=== PATIENT | male | born 1940 | race Caucasian/White ===

== ENCOUNTER 2020-01-24 14:20 | Outpatient (CLI) | payer MEDICARE, OTHER, SELFPAY ==
--- NOTE | ~2020-01-24 | US_ITS ---
EXAMINATION: US arterial ankle brachial ind EXAM DATE: 01/24/2020 15:40 INDICATION: Peripheral arterial disease, left DP and PT not palpable. TECHNIQUE: Segmental pressures and plethysmographic and Doppler waveforms of the brachial and lower e xtremity arteries were obtained. There is no prior study for comparison. FINDINGS: Right and left brachial artery pressures of 176 mm Hg and 163 mm Hg, respectively, are clear (normal difference <= 30 mmHg). RIGHT LEG: The ankle-brachial index (MURRAY) is 0.95 (normal >= 0.9-1). The lower extremity ratios, segmental pressure gradients as follows; Dorsalis pedis: 0.95 (167 mmHg). Posterior tibial: 0.93 (163 mmHg). Right great toe 58 mmHg. (Normal gradients <= 20-30 mmHg between adjacent levels on the same leg or the same levels on the two legs). Arterial waveforms are biphasic. LEFT LEG: The ankle-brachial index (MURRAY) is 0.61 (normal >= 0.9-1). The lower extremity ratios, segmental pressure gradients as follows; Dorsalis pedis: 0.43 (75 mmHg). Posterior tibial: 0.61 (108 mmHg). Left toe 43 mmHg. (Normal gradients <= 20-30 mmHg between adjacent levels on the same leg or the same levels on the two legs). Arterial waveforms are monophasic. IMPRESSION: 1. Right ankle-brachial index 0.95, normal. 2. Left ankle-brachial index 0.61, moderately decreased. 3. Segmental pressures as above. Reviewed, dictated and finalized at location A.
[2020-01-24 14:35] LABS: Basophils Absolute Auto 0.08 K/mm3 (0.00-0.10); Basophils Percent Auto 0.7 % (0.0-1.0); Eosinophils Absolute Auto 0.45 K/mm3 (0.02-0.50); Eosinophils Percent Auto 4.2 % (1.0-6.0); Hematocrit 39.6 % (37.0-46.0); Hemoglobin 13.3 g/dL (12.4-15.3); Immature Granulocyte Absolute 0.08 K/mm3 (0.00-0.00); Immature Granulocyte Percent A 0.7 % (0.0-0.0); Lymphocytes Absolute Auto 1.86 K/mm3 (1.10-4.50); Lymphocytes Percent Auto 17.4 % (18.0-42.0); Mean Corpuscular HGB Conc 33.6 g/dL (32.0-36.0); Mean Corpuscular Hemoglobin 33.4 pg (27.0-31.0); Mean Corpuscular Volume 99.5 fL (78.0-102.0); Mean Platelet Volume 9.3 fl (8.7-11.0); Monocytes Absolute Auto 1.15 K/mm3 (0.10-0.90); Monocytes Percent Auto 10.7 % (2.0-11.0); Neutrophils Absolute Auto 7.1 K/mm3 (1.7-7.2); Neutrophils Percent Auto 66.3 % (50.0-70.0); Platelet Count Result 274 K/mm3 (150-420); Red Blood Count 3.98 M/mm3 (4.70-6.10); Red Cell Distribution Width 14.7 % (11.6-14.4); White Blood Count 10.7 K/mm3 (4.8-10.8)
[2020-01-24 15:12] LABS: Alanine Aminotransferase 17 U/L (16-63); Albumin Level 3.7 g/dL (3.4-5.0); Alkaline Phosphatase 46 U/L (46-116); Anion Gap 13.7 mmol/L (7-16); Aspartate Amino Transferase 15 U/L (15-37); Bilirubin,Total 0.2 mg/dL (0.00-1.00); Blood Urea Nitrogen 37 mg/dL (7-18); CRP 2.6 mg/dL (0.0-0.9); Calcium 8.6 mg/dL (8.5-10.1); Carbon Dioxide 25 mmol/L (21-32); Chloride 107 mmol/L (98-108); Cholesterol 179 mg/dL (0-200); Estimated Glomerular Filt Rate 31; Glucose 129 mg/dL (70-99); HDL Direct 51 mg/dL (40-60); LDL Cholesterol Calculated 95 mg/dL (<130); Osmolality Calculated 302 mOsm/kg (285-295); Potassium 4.7 mmol/L (3.5-5.1); Sodium 141 mmol/L (136-145); Total Protein 6.7 g/dL (6.4-8.2); Triglycerides 164 mg/dL (0-150); Uric Acid 5.5 mg/dL (3.5-7.2)
[2020-01-24 15:38] LABS: Erythrocyte Sedimentation Rate 31 mm/hr (0-20)
== END 2020-01-24 14:21 | disposition home or self-care (01) ==
LOC: CHSLAB 14:25
PROVIDERS: PCP Internal Medicine; Visit Provider Internal Medicine
DX: I73.9 Peripheral vascular disease, unspecified (principal); E53.8 Deficiency of other specified B group vitamins; E79.0 Hyperuricemia without signs of inflammatory arthritis and tophaceous disease; I12.9 Hypertensive chronic kidney disease with stage 1 through stage 4 chronic kidney disease, or unspecified chronic kidney disease; N18.3 Chronic kidney disease, stage 3 (moderate); E78.2 Mixed hyperlipidemia
CPT/HCPCS: 36415; 80053; 80061; 84550; 85025; 85652; 86140; 93922

== ENCOUNTER 2020-01-28 13:34 | Outpatient (CLI) | payer MEDICARE, OTHER, SELFPAY ==
--- NOTE | ~2020-01-28 | US_ITS ---
US retroperitoneal duplex [facility], US retroperitoneal comp 01/28/2020 14:55 Procedure: Realtime transabdominal ultrasound of the kidneys and bladder including retroperitoneal Do ppler examination of the renal arteries. Indication: Acute worsening of UTI Comparison: No prior studies for comparison. Findings: Renal echotexture is normal bilaterally without hydronephrosis, contour deforming mass or r enal calculus. There are left renal cysts measuring 2.2 and 1.8 cm respectively. The right kidney rin sures 8.8 cm and left kidney measures 10 cm. Bladder within normal limits. No focal flow abnormalities are seen in the renal arteries on color Doppler. The peak systolic veloc ity ranges of the right and left renal arteries and aorta are 147 cm per second, 61 cm per second, an d 189 cm per second, respectively. The velocities and renal to aortic ratios are within normal limits . Impression: 1: No Doppler evidence for renal artery stenosis. 2: Left renal cysts measuring up to 2.2 cm. Reviewed, dictated and finalized at location A. Impression: 1: No Doppler evidence for renal artery stenosis. 2: Left renal cysts measuring up to 2.2 cm. Impression: 1: No Doppler evidence for renal artery stenosis. 2: Left renal cysts measuring up to 2.2 cm.
== END 2020-01-28 13:35 | disposition home or self-care (01) ==
LOC: CHSIMG 13:35
PROVIDERS: PCP Internal Medicine; Visit Provider Internal Medicine
DX: I12.9 Hypertensive chronic kidney disease with stage 1 through stage 4 chronic kidney disease, or unspecified chronic kidney disease (principal); N18.9 Chronic kidney disease, unspecified
CPT/HCPCS: 76770; 93976

== ENCOUNTER 2020-02-15 08:41 | Outpatient (CLI) | payer MEDICARE, SELFPAY ==
[2020-02-15 09:52] LABS: Anion Gap 14.4 mmol/L (7-16); Blood Urea Nitrogen 38 mg/dL (7-18); Calcium 8.9 mg/dL (8.5-10.1); Carbon Dioxide 26 mmol/L (21-32); Chloride 103 mmol/L (98-108); Estimated Glomerular Filt Rate 37; Glucose 94 mg/dL (70-99); Osmolality Calculated 295 mOsm/kg (285-295); Potassium 5.4 mmol/L (3.5-5.1); Sodium 138 mmol/L (136-145)
== END 2020-02-15 08:42 | disposition home or self-care (01) ==
LOC: CHSLAB 08:43
PROVIDERS: PCP Internal Medicine; Visit Provider Internal Medicine
DX: N18.3 Chronic kidney disease, stage 3 (moderate) (principal)
CPT/HCPCS: 36415; 80048

== ENCOUNTER 2020-03-18 08:58 | Outpatient (CLI) | payer MEDICARE, SELFPAY ==
[2020-03-18 10:34] LABS: Anion Gap 13.1 mmol/L (7-16); Blood Urea Nitrogen 28 mg/dL (7-18); Calcium 8.8 mg/dL (8.5-10.1); Carbon Dioxide 28 mmol/L (21-32); Chloride 103 mmol/L (98-108); Estimated Glomerular Filt Rate 43; Glucose 87 mg/dL (70-99); Osmolality Calculated 292 mOsm/kg (285-295); Potassium 5.1 mmol/L (3.5-5.1); Sodium 139 mmol/L (136-145)
== END 2020-03-18 08:59 | disposition home or self-care (01) ==
LOC: CHSLAB 08:59
PROVIDERS: PCP Internal Medicine; Visit Provider Internal Medicine
DX: R94.4 Abnormal results of kidney function studies (principal)
CPT/HCPCS: 36415; 80048

== ENCOUNTER 2020-07-24 13:59 | Outpatient (CLI) | payer MEDICARE, OTHER, SELFPAY ==
--- NOTE | ~2020-07-24 | CT_ITS ---
EXAMINATION: CT lung screening DATE: 07/24/2020 15:37 INDICATION: Personal history of tobacco dependence, current smoker with 61 pack year history TECHNIQUE: Computed tomography (CT) of the chest was performed without intravenous contrast. The dose -length product (DLP) was 141.16 mGy-cm. Automated exposure control and iterative reconstruction tech [employer] were employed. COMPARISON: 02/16/2018 FINDINGS: No new or suspicious pulmonary nodule is identified. Calcified pulmonary nodules are consis tent with old granulomatous disease. There is mild emphysema. A small amount of mucus is noted in the distal trachea and mainstem bronchi. The lungs are free of acute opacities. There is no pleural effu ezra or pneumothorax. The heart size is normal. Calcified coronary artery atherosclerosis is noted. T here is unchanged mild mediastinal lymphadenopathy, likely reactive. Cysts of the liver measure up to 4.5 cm in the left hepatic lobe. There is mild thoracic spondylosis. IMPRESSION: 1. Lung-RADS category 2: Benign appearance or behavior. Reviewed, dictated and finalized at location A.
[2020-07-24 14:10] LABS: Basophils Absolute Auto 0.08 K/mm3 (0.00-0.10); Basophils Percent Auto 0.8 % (0.0-1.0); Eosinophils Absolute Auto 0.32 K/mm3 (0.02-0.50); Eosinophils Percent Auto 3.3 % (1.0-6.0); Hematocrit 37.8 % (37.0-46.0); Hemoglobin 12.8 g/dL (12.4-15.3); Immature Granulocyte Absolute 0.09 K/mm3 (0.00-0.00); Immature Granulocyte Percent A 0.9 % (0.0-0.0); Lymphocytes Absolute Auto 1.57 K/mm3 (1.10-4.50); Mean Corpuscular HGB Conc 33.9 g/dL (32.0-36.0); Mean Corpuscular Hemoglobin 34.4 pg (27.0-31.0); Mean Corpuscular Volume 101.6 fL (78.0-102.0); Mean Platelet Volume 9.4 fl (8.7-11.0); Monocytes Absolute Auto 1.11 K/mm3 (0.10-0.90); Monocytes Percent Auto 11.3 % (2.0-11.0); Neutrophils Absolute Auto 6.6 K/mm3 (1.7-7.2); Neutrophils Percent Auto 67.7 % (50.0-70.0); Platelet Count Result 270 K/mm3 (150-420); Red Blood Count 3.72 M/mm3 (4.70-6.10); Red Cell Distribution Width 14.2 % (11.6-14.4); White Blood Count 9.8 K/mm3 (4.8-10.8)
[2020-07-24 14:11] LABS: Add Urine Microscopic? NO; Appearance Urine Clear (Clear); Bilirubin Urine Negative (Negative); Blood Urine Negative (Negative); Color Urine Yellow (Yellow); Glucose Urine UA Negative (Negative); Ketones Urine Negative (Negative); Leukocyte Esterase Ur Negative (Negative); Nitrate Urine Negative (Negative); Protein Urine Negative (Negative); Urobilinogen Urine 0.2 mg/dL (0.2-1.0); pH Urine 5.5 (5.0-8.0)
[2020-07-24 15:58] LABS: Alanine Aminotransferase 26 U/L (16-63); Albumin Level 3.5 g/dL (3.4-5.0); Alkaline Phosphatase 41 U/L (46-116); Anion Gap 9 mmol/L (8-16); Aspartate Amino Transferase 14 U/L (15-37); Bilirubin,Total 0.3 mg/dL (0.00-1.00); Blood Urea Nitrogen 32 mg/dL (7-18); Carbon Dioxide 26 mmol/L (21-32); Chloride 104 mmol/L (98-108); Cholesterol 173 mg/dL (0-200); Estimated Glomerular Filt Rate 37; Glucose 122 mg/dL (70-99); HDL Direct 54 mg/dL (40-60); LDL Cholesterol Calculated 89 mg/dL (<130); Osmolality Calculated 295 mOsm/kg (285-295); Potassium 4.4 mmol/L (3.5-5.1); Sodium 139 mmol/L (136-145); Total Protein 6.4 g/dL (6.4-8.2); Triglycerides 150 mg/dL (0-150); Uric Acid 5.6 mg/dL (3.5-7.2); Vitamin B12 801 pg/mL (193-986)
== END 2020-07-24 14:00 | disposition home or self-care (01) ==
PROVIDERS: PCP Internal Medicine; Visit Provider Internal Medicine
DX: Z12.2 Encounter for screening for malignant neoplasm of respiratory organs (principal); Z87.891 Personal history of nicotine dependence; E79.0 Hyperuricemia without signs of inflammatory arthritis and tophaceous disease; I12.9 Hypertensive chronic kidney disease with stage 1 through stage 4 chronic kidney disease, or unspecified chronic kidney disease; E78.2 Mixed hyperlipidemia; N18.30 Chronic kidney disease, stage 3 unspecified; E53.8 Deficiency of other specified B group vitamins
CPT/HCPCS: 36415; 80053; 80061; 81003; 82607; 84550; 85025; G0297

== ENCOUNTER 2021-01-24 06:58 | Outpatient (CLI) | payer MEDICARE, SELFPAY ==
[2021-01-24 07:12] LABS: Add Urine Microscopic? YES; Appearance Urine Clear (Clear); Basophils Percent Auto 1.1 % (0.0-1.0); Bilirubin Urine Negative (Negative); Blood Urine Negative (Negative); Color Urine Yellow (Yellow); Eosinophils Absolute Auto 0.49 K/mm3 (0.02-0.50); Eosinophils Percent Auto 5.5 % (1.0-6.0); Glucose Urine UA Negative (Negative); Hematocrit 40.4 % (37.0-46.0); Immature Granulocyte Absolute 0.06 K/mm3 (0.00-0.00); Immature Granulocyte Percent A 0.7 % (0.0-0.0); Ketones Urine Negative (Negative); Leukocyte Esterase Ur 1+ (Negative); Lymphocytes Absolute Auto 1.72 K/mm3 (1.10-4.50); Lymphocytes Percent Auto 19.4 % (18.0-42.0); Mean Corpuscular HGB Conc 32.2 g/dL (32.0-36.0); Mean Corpuscular Hemoglobin 32.8 pg (27.0-31.0); Mean Platelet Volume 9.9 fl (8.7-11.0); Monocytes Percent Auto 13.5 % (2.0-11.0); Neutrophils Absolute Auto 5.3 K/mm3 (1.7-7.2); Neutrophils Percent Auto 59.8 % (50.0-70.0); Nitrate Urine Positive (Negative); Platelet Count Result 250 K/mm3 (150-420); Protein Urine Negative (Negative); Red Blood Count 3.96 M/mm3 (4.70-6.10); Red Cell Distribution Width 14.6 % (11.6-14.4); Specific Grav Ur 1.015 (1.010-1.020); Urobilinogen Urine 0.2 mg/dL (0.2-1.0); White Blood Count 8.9 K/mm3 (4.8-10.8); pH Urine 5.5 (5.0-8.0)
[2021-01-24 07:25] LABS: Bacteria Urine 1+ /hpf; Squamous Epithelial Cell Urine Few /hpf (Few)
[2021-01-24 08:26] LABS: Alanine Aminotransferase 20 U/L (16-63); Albumin Level 3.5 g/dL (3.4-5.0); Alkaline Phosphatase 34 U/L (46-116); Anion Gap 10 mmol/L (8-16); Aspartate Amino Transferase 12 U/L (15-37); Bilirubin,Total 0.6 mg/dL (0.00-1.00); Blood Urea Nitrogen 37 mg/dL (7-18); Calcium 8.8 mg/dL (8.5-10.1); Carbon Dioxide 25 mmol/L (21-32); Chloride 105 mmol/L (98-108); Cholesterol 159 mg/dL (0-200); Creatine Kinase 78 U/L (39-308); Estimated Glomerular Filt Rate 34; Glucose 93 mg/dL (70-99); HDL Direct 52 mg/dL (40-60); LDL Cholesterol Calculated 87 mg/dL (<130); Osmolality Calculated 298 mOsm/kg (285-295); Potassium 4.5 mmol/L (3.5-5.1); Prostate Specific Antigen 1.1 ng/mL (< OR = 4.0); Sodium 140 mmol/L (136-145); Total Protein 6.5 g/dL (6.4-8.2); Triglycerides 102 mg/dL (0-150); Vitamin B12 1738 pg/mL (193-986)
== END 2021-01-24 06:59 | disposition home or self-care (01) ==
LOC: CHSLAB 07:00
PROVIDERS: PCP Internal Medicine; Visit Provider Internal Medicine
DX: E78.2 Mixed hyperlipidemia (principal); I12.9 Hypertensive chronic kidney disease with stage 1 through stage 4 chronic kidney disease, or unspecified chronic kidney disease; N18.30 Chronic kidney disease, stage 3 unspecified; E53.8 Deficiency of other specified B group vitamins; E79.0 Hyperuricemia without signs of inflammatory arthritis and tophaceous disease; Z12.5 Encounter for screening for malignant neoplasm of prostate
CPT/HCPCS: 36415; 80053; 80061; 81001; 82550; 82607; 84153; 84550; 85025; G0103

== ENCOUNTER 2021-02-10 10:49 | Outpatient (CLI) | payer MEDICARE, OTHER, SELFPAY ==
--- NOTE | ~2021-02-10 | MR_ITS ---
EXAMINATION: MR lumbar spine wo con DATE: 02/10/2021 11:33 INDICATION: Low back pain. TECHNIQUE: Magnetic resonance imaging (MRI) of the lumbar spine was performed without intravenous con trast. Sequences included sagittal T2-weighted FSE, sagittal T2-weighted FS FSE, sagittal T1-weighted FSE, and axial T2-weighted FSE. COMPARISON: None FINDINGS: There is 8 degrees levocurvature of lumbar spine. There is 3 mm retrolisthesis of L2 on L3, L3 on L4, and L4 on L5. Vertebral body heights are normal. There is moderately decreased disc height at L2-L3 and severely decreased disc height from L3-L4 through L5-S1 with endplate remodeling. Epidu ral lipomatosis is noted. The distal spinal cord signal intensity is normal. The conus medullaris is at L1-L2. The following disc levels are specifically discussed: L1-L2: The disc does not extend beyond the endplate margin. There is moderate right and mild left fac et joint osteoarthritis. There is no neural foraminal stenosis. There is no central canal stenosis. L2-L3: The disc is bulging and has an annular fissure. There is moderate bilateral facet joint osteoa rthritis. There is moderate bilateral neural foraminal stenosis. There is moderate central canal sten osis. L3-L4: The disc is bulging and has an annular fissure. There is severe right and moderate left facet joint osteoarthritis. There is moderate bilateral neural foraminal stenosis. There is severe central canal stenosis. L4-L5: The disc is bulging and has an annular fissure. There is severe bilateral facet joint osteoart hritis. There is moderate bilateral neural foraminal stenosis. There is severe central canal stenosis . L5-S1: The disc is bulging and has an annular fissure. There is moderate bilateral facet joint osteoa rthritis. There is moderate bilateral neural foraminal stenosis. There is severe central canal stenos is. IMPRESSION: 1. Severe lumbar spondylosis. Reviewed, dictated and finalized at location A.
== END 2021-02-10 10:50 | disposition home or self-care (01) ==
PROVIDERS: PCP Internal Medicine; Visit Provider Internal Medicine
DX: M54.5 Low back pain (principal); M47.816 Spondylosis without myelopathy or radiculopathy, lumbar region
CPT/HCPCS: 72148

== ENCOUNTER 2021-07-11 06:57 | Outpatient (CLI) | payer MEDICARE, SELFPAY ==
[2021-07-11 07:15] LABS: Basophils Percent Auto 1.2 % (0.0-1.0); Eosinophils Absolute Auto 0.39 K/mm3 (0.02-0.50); Eosinophils Percent Auto 4.6 % (1.0-6.0); Hemoglobin 12.9 g/dL (12.4-15.3); Immature Granulocyte Absolute 0.06 K/mm3 (0.00-0.00); Immature Granulocyte Percent A 0.7 % (0.0-0.0); Lymphocytes Absolute Auto 1.54 K/mm3 (1.10-4.50); Mean Corpuscular HGB Conc 33.1 g/dL (32.0-36.0); Mean Corpuscular Hemoglobin 33.7 pg (27.0-31.0); Mean Corpuscular Volume 101.8 fL (78.0-102.0); Mean Platelet Volume 9.5 fl (8.7-11.0); Monocytes Absolute Auto 0.99 K/mm3 (0.10-0.90); Monocytes Percent Auto 11.6 % (2.0-11.0); Neutrophils Absolute Auto 5.5 K/mm3 (1.7-7.2); Neutrophils Percent Auto 63.9 % (50.0-70.0); Platelet Count Result 251 K/mm3 (150-420); Red Blood Count 3.83 M/mm3 (4.70-6.10); Red Cell Distribution Width 14.6 % (11.6-14.4); White Blood Count 8.6 K/mm3 (4.8-10.8)
[2021-07-11 07:19] LABS: Add Urine Microscopic? YES; Appearance Urine Clear (Clear); Bilirubin Urine Negative (Negative); Blood Urine Negative (Negative); Color Urine Light Yellow (Yellow); Glucose Urine UA Negative (Negative); Ketones Urine Negative (Negative); Leukocyte Esterase Ur 1+ (Negative); Nitrate Urine Negative (Negative); Protein Urine Negative (Negative); Specific Grav Ur <= 1.005 (1.010-1.020); Urobilinogen Urine 0.2 mg/dL (0.2-1.0); pH Urine 5.5 (5.0-8.0)
[2021-07-11 07:32] LABS: Bacteria Urine 2+ /hpf; RBC Urine 0-2 /hpf (0-2); Squamous Epithelial Cell Urine Occasional /hpf (Few)
[2021-07-11 09:10] LABS: Alanine Aminotransferase 25 U/L (16-63); Albumin Level 3.6 g/dL (3.4-5.0); Alkaline Phosphatase 38 U/L (46-116); Anion Gap 11 mmol/L (8-16); Aspartate Amino Transferase 16 U/L (15-37); Bilirubin,Total 0.3 mg/dL (0.00-1.00); Blood Urea Nitrogen 25 mg/dL (7-18); Calcium 8.7 mg/dL (8.5-10.1); Carbon Dioxide 28 mmol/L (21-32); Chloride 106 mmol/L (98-108); Cholesterol 157 mg/dL (0-200); Creatine Kinase 51 U/L (39-308); Estimated Glomerular Filt Rate 49; Glucose 93 mg/dL (70-99); HDL Direct 50 mg/dL (40-60); LDL Cholesterol Calculated 87 mg/dL (<130); Osmolality Calculated 304 mOsm/kg (285-295); Potassium 4.7 mmol/L (3.5-5.1); Sodium 145 mmol/L (136-145); Total Protein 6.3 g/dL (6.4-8.2); Triglycerides 101 mg/dL (0-150); Uric Acid 5.1 mg/dL (3.5-7.2); Vitamin B12 1858 pg/mL (193-986)
== END 2021-07-11 06:58 | disposition home or self-care (01) ==
LOC: CHSLAB 06:59
PROVIDERS: PCP Internal Medicine; Visit Provider Internal Medicine
DX: E78.2 Mixed hyperlipidemia (principal); I10 Essential (primary) hypertension; E79.0 Hyperuricemia without signs of inflammatory arthritis and tophaceous disease; E53.8 Deficiency of other specified B group vitamins
CPT/HCPCS: 36415; 80053; 80061; 81001; 82550; 82607; 84550; 85025

== ENCOUNTER 2021-07-30 09:48 | Outpatient (CLI) | payer MEDICARE, OTHER, SELFPAY ==
--- NOTE | ~2021-07-30 | CT_ITS ---
EXAMINATION:CT lung screening DATE: 07/30/2021 10:13 INDICATION: Personal history of tobacco dependence. Current smoker with 62 pack year history. TECHNIQUE: Computed tomography (CT) of the chest was performed without intravenous contrast. Automate d exposure control and iterative reconstruction technique were employed. The dose-length product (DLP ) was 103.41 mGy-cm. COMPARISON: Chest CT 07/24/2020 FINDINGS: There is mild scarring at the lung apices. There is mild emphysema. There is mild atelectas is bilaterally. Calcified bilateral lung nodules and calcified right hilar lymph nodes are consistent with old granulomatous disease. No pleural effusion. The heart size is normal. There are coronary ar barrington calcifications. No pericardial effusion. There are cysts in the liver measuring up to 4.4 cm. Th ere is calcified atherosclerosis of the aorta and many of the other arteries. There is mild thoracic spondylosis. IMPRESSION: 1. Lung-RADS category 2: Benign appearance or behavior. Reviewed, dictated and finalized at location A.
== END 2021-07-30 09:49 | disposition home or self-care (01) ==
LOC: CHSIMG 09:49
PROVIDERS: PCP Internal Medicine; Visit Provider Internal Medicine
DX: Z12.2 Encounter for screening for malignant neoplasm of respiratory organs (principal); Z87.891 Personal history of nicotine dependence
CPT/HCPCS: 71271

== ENCOUNTER 2022-01-16 07:03 | Outpatient (CLI) | payer MEDICARE, SELFPAY ==
[2022-01-16 07:20] LABS: Basophils Absolute Auto 0.09 K/mm3 (0.00-0.10); Basophils Percent Auto 1.1 % (0.0-1.0); Eosinophils Absolute Auto 0.41 K/mm3 (0.02-0.50); Eosinophils Percent Auto 4.8 % (1.0-6.0); Hematocrit 39.6 % (37.0-46.0); Hemoglobin 13.2 g/dL (12.4-15.3); Immature Granulocyte Absolute 0.04 K/mm3 (0.00-0.00); Immature Granulocyte Percent A 0.5 % (0.0-0.0); Lymphocytes Absolute Auto 1.85 K/mm3 (1.10-4.50); Lymphocytes Percent Auto 21.6 % (18.0-42.0); Mean Corpuscular HGB Conc 33.3 g/dL (32.0-36.0); Mean Corpuscular Hemoglobin 33.9 pg (27.0-31.0); Mean Corpuscular Volume 101.8 fL (78.0-102.0); Mean Platelet Volume 9.6 fl (8.7-11.0); Monocytes Absolute Auto 1.09 K/mm3 (0.10-0.90); Monocytes Percent Auto 12.7 % (2.0-11.0); Neutrophils Absolute Auto 5.1 K/mm3 (1.7-7.2); Neutrophils Percent Auto 59.3 % (50.0-70.0); Platelet Count Result 270 K/mm3 (150-420); Red Blood Count 3.89 M/mm3 (4.70-6.10); Red Cell Distribution Width 15.4 % (11.6-14.4); White Blood Count 8.6 K/mm3 (4.8-10.8)
[2022-01-16 07:21] LABS: Add Urine Microscopic? YES; Appearance Urine Clear (Clear); Bilirubin Urine Negative (Negative); Blood Urine Negative (Negative); Color Urine Light Yellow (Yellow); Glucose Urine UA Negative (Negative); Ketones Urine Negative (Negative); Leukocyte Esterase Ur 1+ (Negative); Nitrate Urine Positive (Negative); Protein Urine Negative (Negative); Specific Grav Ur <= 1.005 (1.010-1.020); Urobilinogen Urine 0.2 mg/dL (0.2-1.0)
[2022-01-16 07:26] LABS: RBC Urine None seen /hpf (0-2); Squamous Epithelial Cell Urine Few /hpf (Few)
[2022-01-16 07:27] LABS: Bacteria Urine 2+ /hpf
[2022-01-16 08:29] LABS: Alanine Aminotransferase 23 U/L (16-63); Albumin Level 3.5 g/dL (3.4-5.0); Alkaline Phosphatase 38 U/L (46-116); Anion Gap 7 mmol/L (8-16); Aspartate Amino Transferase 16 U/L (15-37); Bilirubin,Total 0.4 mg/dL (0.00-1.00); Blood Urea Nitrogen 21 mg/dL (7-18); Calcium 8.6 mg/dL (8.5-10.1); Carbon Dioxide 28 mmol/L (21-32); Chloride 106 mmol/L (98-108); Cholesterol 154 mg/dL (0-200); Creatine Kinase 48 U/L (39-308); Estimated Glomerular Filt Rate 45; Glucose 90 mg/dL (70-99); HDL Direct 52 mg/dL (40-60); LDL Cholesterol Calculated 86 mg/dL (<130); Osmolality Calculated 295 mOsm/kg (285-295); Potassium 4.5 mmol/L (3.5-5.1); Sodium 141 mmol/L (136-145); Total Protein 6.4 g/dL (6.4-8.2); Triglycerides 82 mg/dL (0-150); Uric Acid 5.2 mg/dL (3.5-7.2)
== END 2022-01-16 07:04 | disposition home or self-care (01) ==
LOC: CHSLAB 07:06
PROVIDERS: PCP Internal Medicine; Visit Provider Internal Medicine
DX: E78.2 Mixed hyperlipidemia (principal); I12.9 Hypertensive chronic kidney disease with stage 1 through stage 4 chronic kidney disease, or unspecified chronic kidney disease; N18.30 Chronic kidney disease, stage 3 unspecified; D64.9 Anemia, unspecified; E79.0 Hyperuricemia without signs of inflammatory arthritis and tophaceous disease
CPT/HCPCS: 36415; 80053; 80061; 81001; 82550; 84550; 85025

== ENCOUNTER 2022-02-15 08:42 | Outpatient (CLI) | payer MEDICARE, SELFPAY ==
--- NOTE | ~2022-02-15 | US_ITS ---
EXAMINATION: US aorta DATE: 02/15/2022 09:18 INDICATION: Abdominal aortic aneurysm TECHNIQUE: Grayscale, color Doppler, and pulsed Doppler images of the aorta and common iliac arteries were obtained. COMPARISON: 02/02/2018 FINDINGS: The proximal aorta measures 2.8 cm AP. The mid aorta measures 2.5 cm. The distal aorta measures 2.9 c m. Mild scattered atherosclerotic plaque identified in the abdominal aorta without significant stenos is. The right common iliac artery measures 1.7 cm. The left common iliac artery measures 1.5 cm. IMPRESSION: 1. Normal caliber abdominal aorta. Reviewed, dictated and finalized at location A.
--- NOTE | ~2022-02-15 | US_ITS ---
EXAMINATION: US carotid duplex BI DATE: 02/15/2022 09:20 INDICATION: Carotid stenosis TECHNIQUE: Grayscale, color Doppler, and pulsed Doppler images of the cervical carotid arteries were obtained. The degree of vessel stenosis is placed in one of the following categories: normal, <50%, 5 0-69%, >=70% but less than near-occlusion, near-occlusion, or total occlusion. Note that percent sten osis relative to normal distal artery lumen diameter is indirectly measured from velocity measurement s as described by Adiel, et al. Radiology 2003; 229:340-346. COMPARISON: None. FINDINGS: RIGHT: The right common carotid artery (CCA) peak systolic velocity (PSV) is 61 cm/s. The right internal car otid artery (ICA) PSV is 87 cm/s. The right ICA end-diastolic velocity (EDV) is 22 cm/s. The right IC A/CCA PSV ratio is 1.4. Grayscale and color Doppler images yield an estimate of <50% diameter reducti on from plaque in the ICA. The external carotid artery (ECA) PSV is 87 cm/s. There is antegrade flow in the right vertebral artery. LEFT: The left CCA PSV is 75 cm/s. The left ICA PSV is 79 cm/s. The left ICA EDV is 14 cm/s. The left ICA/C CA PSV ratio is 1.1. Grayscale and color Doppler images yield an estimate of <50% diameter reduction from plaque in the ICA. The ECA PSV is 52 cm/s. There is antegrade flow in the left vertebral artery. IMPRESSION: 1. <50% stenosis in the right internal carotid artery. 2. <50% stenosis in the left internal carotid artery. Reviewed, dictated and finalized at location A.
== END 2022-02-15 08:43 | disposition home or self-care (01) ==
LOC: CHSIMG 08:43
PROVIDERS: PCP Internal Medicine; Visit Provider Internal Medicine
DX: I73.9 Peripheral vascular disease, unspecified (principal); I71.4 Abdominal aortic aneurysm, without rupture; I65.29 Occlusion and stenosis of unspecified carotid artery
CPT/HCPCS: 76775; 93880

== ENCOUNTER 2022-02-17 09:52 | Outpatient (CLI) | payer MEDICARE, SELFPAY ==
--- NOTE | ~2022-02-17 | US_ITS ---
EXAMINATION: US arterial ankle brachial ind DATE: 02/17/2022 10:31 INDICATION: Peripheral arterial disease. TECHNIQUE: Segmental pressures and plethysmographic and Doppler waveforms of the brachial and lower e xtremity arteries were obtained. COMPARISON: ABIs 01/24/2020 FINDINGS: Right and left brachial artery pressures of 155 mm Hg and 153 mm Hg, respectively, are concordant (no rmal difference <= 30 mmHg). The right ankle-brachial index (MURRAY) is 0.89 (normal >= 0.9-1.0). The right great toe-brachial index (TBI) is 0.31 (normal >= 0.65). Arterial Doppler waveforms are monophasic at the ankle. The left MURRAY is 0.65. The left TBI is 0.34. Arterial Doppler waveforms are monophasic at the ankle. IMPRESSION: 1. Mildly decreased right MURRAY and moderately decreased left MURRAY with interval worsening on the right, consistent with arterial occlusive disease. Reviewed, dictated and finalized at location B. IMPRESSION: 1. Mildly decreased right MURRAY and moderately decreased left MURRAY with interval w orsening on the right, consistent with arterial occlusive disease.
== END 2022-02-17 09:53 | disposition home or self-care (01) ==
LOC: CHSIMG 09:53
PROVIDERS: PCP Internal Medicine; Visit Provider Internal Medicine
DX: I73.9 Peripheral vascular disease, unspecified (principal); I71.4 Abdominal aortic aneurysm, without rupture; I65.29 Occlusion and stenosis of unspecified carotid artery
CPT/HCPCS: 93922

== ENCOUNTER 2022-07-17 06:57 | Outpatient (CLI) | payer MEDICARE, SELFPAY ==
[2022-07-17 07:10] LABS: Basophils Absolute Auto 0.09 K/mm3 (0.00-0.10); Basophils Percent Auto 0.9 % (0.0-1.0); Eosinophils Absolute Auto 0.46 K/mm3 (0.02-0.50); Eosinophils Percent Auto 4.8 % (1.0-6.0); Hematocrit 36.9 % (37.0-46.0); Hemoglobin 12.3 g/dL (12.4-15.3); Immature Granulocyte Percent A 1.1 % (0.0-0.0); Lymphocytes Absolute Auto 1.65 K/mm3 (1.10-4.50); Lymphocytes Percent Auto 17.3 % (18.0-42.0); Mean Corpuscular HGB Conc 33.3 g/dL (32.0-36.0); Mean Corpuscular Hemoglobin 34.1 pg (27.0-31.0); Mean Corpuscular Volume 102.2 fL (78.0-102.0); Mean Platelet Volume 9.8 fl (8.7-11.0); Monocytes Absolute Auto 1.12 K/mm3 (0.10-0.90); Monocytes Percent Auto 11.8 % (2.0-11.0); Neutrophils Absolute Auto 6.1 K/mm3 (1.7-7.2); Neutrophils Percent Auto 64.1 % (50.0-70.0); Platelet Count Result 259 K/mm3 (150-420); Red Blood Count 3.61 M/mm3 (4.70-6.10); Red Cell Distribution Width 15.2 % (11.6-14.4); White Blood Count 9.5 K/mm3 (4.8-10.8)
[2022-07-17 07:12] LABS: Appearance Urine Clear (Clear); Bilirubin Urine Negative (Negative); Glucose Urine UA Negative (Negative); Ketones Urine Negative (Negative); Leukocyte Esterase Ur 1+ (Negative); Nitrate Urine Positive (Negative); Protein Urine Negative (Negative); Urobilinogen Urine 0.2 mg/dL (0.2-1.0)
[2022-07-17 07:16] LABS: Add Urine Microscopic? YES; Blood Urine Trace-lysed (Negative); Color Urine Light Yellow (Yellow); RBC Urine None seen /hpf (0-2)
[2022-07-17 07:17] LABS: Bacteria Urine 2+ /hpf; Squamous Epithelial Cell Urine Occasional /hpf (Few); WBC Urine 16-20 /hpf (0-3)
[2022-07-17 07:25] LABS: Alanine Aminotransferase 18 U/L (16-63); Albumin Level 3.4 g/dL (3.4-5.0); Alkaline Phosphatase 39 U/L (46-116); Anion Gap 6 mmol/L (8-16); Aspartate Amino Transferase 13 U/L (15-37); Bilirubin,Total 0.4 mg/dL (0.00-1.00); Blood Urea Nitrogen 27 mg/dL (7-18); Calcium 8.6 mg/dL (8.5-10.1); Carbon Dioxide 27 mmol/L (21-32); Chloride 109 mmol/L (98-108); Cholesterol 158 mg/dL (0-200); Creatine Kinase 55 U/L (39-308); Estimated Glomerular Filt Rate 47; Glucose 106 mg/dL (70-99); HDL Direct 59 mg/dL (40-60); LDL Cholesterol Calculated 86 mg/dL (<130); Osmolality Calculated 299 mOsm/kg (285-295); Potassium 4.4 mmol/L (3.5-5.1); Sodium 142 mmol/L (136-145); Total Protein 6.6 g/dL (6.4-8.2); Triglycerides 66 mg/dL (0-150)
[2022-07-20 20:04] LABS: Parathyroid Intact 60 pg/mL (14-64)
== END 2022-07-17 06:58 | disposition home or self-care (01) ==
LOC: CHSLAB 06:58
PROVIDERS: PCP Internal Medicine; Visit Provider Internal Medicine
DX: E78.2 Mixed hyperlipidemia (principal); E53.8 Deficiency of other specified B group vitamins; I12.9 Hypertensive chronic kidney disease with stage 1 through stage 4 chronic kidney disease, or unspecified chronic kidney disease; N18.4 Chronic kidney disease, stage 4 (severe)
CPT/HCPCS: 36415; 80053; 80061; 81001; 82550; 83970; 85025

== ENCOUNTER 2023-01-22 06:57 | Outpatient (CLI) | payer MEDICARE, SELFPAY ==
[2023-01-22 07:24] LABS: Appearance Urine Slightly Cloudy (Clear); Basophils Absolute Auto 0.08 K/mm3 (0.00-0.10); Basophils Percent Auto 0.9 % (0.0-1.0); Bilirubin Urine Negative (Negative); Blood Urine Negative (Negative); Color Urine Light Yellow (Yellow); Eosinophils Absolute Auto 0.53 K/mm3 (0.02-0.50); Glucose Urine UA Negative (Negative); Hematocrit 37.6 % (37.0-46.0); Hemoglobin 12.3 g/dL (12.4-15.3); Immature Granulocyte Absolute 0.08 K/mm3 (0.00-0.00); Immature Granulocyte Percent A 0.9 % (0.0-0.0); Ketones Urine Negative (Negative); Leukocyte Esterase Ur 1+ (Negative); Lymphocytes Absolute Auto 1.85 K/mm3 (1.10-4.50); Lymphocytes Percent Auto 20.9 % (18.0-42.0); Mean Corpuscular HGB Conc 32.7 g/dL (32.0-36.0); Mean Corpuscular Hemoglobin 32.8 pg (27.0-31.0); Mean Corpuscular Volume 100.3 fL (78.0-102.0); Mean Platelet Volume 9.8 fl (8.7-11.0); Monocytes Percent Auto 10.2 % (2.0-11.0); Neutrophils Absolute Auto 5.4 K/mm3 (1.7-7.2); Neutrophils Percent Auto 61.1 % (50.0-70.0); Nitrate Urine Positive (Negative); Platelet Count Result 282 K/mm3 (150-420); Protein Urine Negative (Negative); Red Blood Count 3.75 M/mm3 (4.70-6.10); Red Cell Distribution Width 15.2 % (11.6-14.4); Urobilinogen Urine 0.2 mg/dL (0.2-1.0); White Blood Count 8.9 K/mm3 (4.8-10.8)
[2023-01-22 07:36] LABS: Add Urine Microscopic? YES; Bacteria Urine 3+ /hpf; RBC Urine None seen /hpf (0-2); Squamous Epithelial Cell Urine Few /hpf (Few)
[2023-01-22 08:06] LABS: Alanine Aminotransferase 21 U/L (16-63); Albumin Level 3.5 g/dL (3.4-5.0); Alkaline Phosphatase 37 U/L (46-116); Anion Gap 10 mmol/L (8-16); Aspartate Amino Transferase 17 U/L (15-37); Bilirubin,Total 0.4 mg/dL (0.00-1.00); Blood Urea Nitrogen 27 mg/dL (7-18); Calcium 8.6 mg/dL (8.5-10.1); Carbon Dioxide 26 mmol/L (21-32); Chloride 108 mmol/L (98-108); Cholesterol 162 mg/dL (0-200); Creatine Kinase 49 U/L (39-308); Estimated Glomerular Filt Rate 44; Ferritin 66 ng/mL (26-388); Free T4 Free Thyroxine 1.02 ng/dL (0.76-1.46); Glucose 98 mg/dL (70-99); HDL Direct 60 mg/dL (40-60); Iron 36 ug/dL (65-175); LDL Cholesterol Calculated 87 mg/dL (<130); Osmolality Calculated 303 mOsm/kg (285-295); Potassium 4.4 mmol/L (3.5-5.1); Sodium 144 mmol/L (136-145); Thyroid Stimulating Hormone 3.56 uIU/mL (0.36-3.74); Total Protein 6.5 g/dL (6.4-8.2); Triglycerides 75 mg/dL (0-150); Uric Acid 5.2 mg/dL (3.5-7.2); Vitamin B12 1907 pg/mL (193-986)
== END 2023-01-22 06:58 | disposition home or self-care (01) ==
LOC: CHSLAB 07:01
PROVIDERS: PCP Internal Medicine; Visit Provider Internal Medicine
DX: I10 Essential (primary) hypertension (principal); E78.2 Mixed hyperlipidemia; D64.9 Anemia, unspecified; N18.4 Chronic kidney disease, stage 4 (severe); E53.8 Deficiency of other specified B group vitamins; E79.0 Hyperuricemia without signs of inflammatory arthritis and tophaceous disease
CPT/HCPCS: 36415; 80053; 80061; 81001; 82550; 82607; 82728; 83540; 84439; 84443; 84550; 85025

== ENCOUNTER → 2023-04-06 10:58 | Outpatient (CLI) | payer MEDICARE, SELFPAY ==
--- NOTE | ~2023-04-06 | CT_ITS ---
CT Scan of the Chest without Contrast: Clinical Indication: Pulmonary nodule, COPD Technique: Contiguous sections were acquired throughout the chest without intravenous contrast. Dose reduction technique was used on this scan by utilizing automated exposure control and iterative recon struction technique. The dose-length product (DLP) was 71.94 mGy-cm. COMPARISON: 07/30/2021 Findings: There is no evidence of any significant mediastinal, hilar or axillary lymphadenopathy. There are ath erosclerotic calcifications of the aorta and coronary arteries. There is no evidence of pleural or pericardial effusion. The lungs are clear, aside from several calcified granulomas. Images through the upper abdomen reveal stable hepatic cysts. Impression: No suspicious pulmonary nodule. Evidence of prior granulomatous disease. Reviewed, dictated and finalized at [facility]. Impression: No suspicious pulmonary nodule. Evidence of prior granulomatous disease.
== END ==
PROVIDERS: PCP Internal Medicine; Visit Provider Internal Medicine
DX: R91.8 Other nonspecific abnormal finding of lung field (principal); J44.9 Chronic obstructive pulmonary disease, unspecified
CPT/HCPCS: 71250

== ENCOUNTER 2023-07-23 06:56 | Outpatient (CLI) | payer MEDICARE, SELFPAY ==
[2023-07-23 07:15] LABS: Appearance Urine Slightly Cloudy (Clear); Bilirubin Urine Negative (Negative); Blood Urine Negative (Negative); Color Urine Light Yellow (Yellow); Eosinophils Absolute Auto 0.49 K/mm3 (0.02-0.50); Glucose Urine UA Negative (Negative); Hematocrit 37.2 % (37.0-46.0); Hemoglobin 12.3 g/dL (12.4-15.3); Immature Granulocyte Absolute 0.07 K/mm3 (0.00-0.00); Immature Granulocyte Percent A 0.7 % (0.0-0.0); Ketones Urine Negative (Negative); Leukocyte Esterase Ur 2+ LEU/UL (Negative); Lymphocytes Absolute Auto 2.01 K/mm3 (1.10-4.50); Lymphocytes Percent Auto 20.5 % (18.0-42.0); Mean Corpuscular HGB Conc 33.1 g/dL (32.0-36.0); Mean Corpuscular Hemoglobin 33.9 pg (27.0-31.0); Mean Corpuscular Volume 102.5 fL (78.0-102.0); Mean Platelet Volume 9.8 fl (8.7-11.0); Monocytes Absolute Auto 1.13 K/mm3 (0.10-0.90); Monocytes Percent Auto 11.5 % (2.0-11.0); Neutrophils Percent Auto 61.3 % (50.0-70.0); Nitrate Urine Positive (Negative); Platelet Count Result 269 K/mm3 (150-420); Protein Urine Negative (Negative); Red Blood Count 3.63 M/mm3 (4.70-6.10); Red Cell Distribution Width 15.2 % (11.6-14.4); Urobilinogen Urine 0.2 mg/dL (0.2-1.0); White Blood Count 9.8 K/mm3 (4.8-10.8)
[2023-07-23 07:19] LABS: Add Urine Microscopic? YES; Bacteria Urine 2+ /hpf; RBC Urine None seen /hpf (0-2); Squamous Epithelial Cell Urine Few /hpf (Few); WBC Urine 16-20 /hpf (0-3)
[2023-07-23 07:59] LABS: Alanine Aminotransferase 17 U/L (16-63); Albumin Level 3.5 g/dL (3.4-5.0); Alkaline Phosphatase 39 U/L (46-116); Anion Gap 9 mmol/L (8-16); Aspartate Amino Transferase 10 U/L (15-37); Bilirubin,Total 0.4 mg/dL (0.00-1.00); Blood Urea Nitrogen 28 mg/dL (7-18); Calcium 8.9 mg/dL (8.5-10.1); Carbon Dioxide 25 mmol/L (21-32); Chloride 107 mmol/L (98-108); Cholesterol 170 mg/dL (0-200); Creatine Kinase 45 U/L (39-308); Estimated Glomerular Filt Rate 43; Ferritin 46 ng/mL (26-388); Free T3 2.68 pg/mL (2.18-3.98); Free T4 Free Thyroxine 0.99 ng/dL (0.76-1.46); Glucose 100 mg/dL (70-99); HDL Direct 62 mg/dL (40-60); Iron 49 ug/dL (65-175); LDL Cholesterol Calculated 91 mg/dL (<130); Osmolality Calculated 297 mOsm/kg (285-295); Potassium 4.3 mmol/L (3.5-5.1); Sodium 141 mmol/L (136-145); Total Protein 6.4 g/dL (6.4-8.2); Triglycerides 85 mg/dL (0-150); Uric Acid 5.3 mg/dL (3.5-7.2)
[2023-07-23 08:41] LABS: Vitamin B12 > 2000 pg/mL (193-986)
== END 2023-07-23 06:57 | disposition home or self-care (01) ==
LOC: CHSLAB 06:59
PROVIDERS: PCP Internal Medicine; Visit Provider Internal Medicine
DX: N39.0 Urinary tract infection, site not specified (principal); E78.2 Mixed hyperlipidemia; I10 Essential (primary) hypertension; D50.9 Iron deficiency anemia, unspecified; E79.0 Hyperuricemia without signs of inflammatory arthritis and tophaceous disease; R53.83 Other fatigue; D51.9 Vitamin B12 deficiency anemia, unspecified; R82.90 Unspecified abnormal findings in urine
CPT/HCPCS: 36415; 80053; 80061; 81001; 82550; 82607; 82728; 83540; 84439; 84443; 84481; 84550; 85025; 87077; 87086; 87088; 87186

== ENCOUNTER 2024-02-04 07:05 | Outpatient (CLI) | payer MEDICARE, SELFPAY ==
[2024-02-04 07:41] LABS: Appearance Urine Sl Cloudy (Clear); Basophils Absolute Auto 0.12 K/mm3 (0.00-0.10); Basophils Percent Auto 1.3 % (0.0-1.0); Bilirubin Urine Negative (Negative); Blood Urine Negative (Negative); Color Urine Light Yellow (Yellow); Eosinophils Absolute Auto 0.51 K/mm3 (0.02-0.50); Eosinophils Percent Auto 5.7 % (1.0-6.0); Glucose Urine UA Negative (Negative); Hemoglobin 11.8 g/dL (12.4-15.3); Immature Granulocyte Absolute 0.05 K/mm3 (0.00-0.00); Immature Granulocyte Percent A 0.6 % (0.0-0.0); Ketones Urine Negative (Negative); Leukocyte Esterase Ur 2+ (Negative); Lymphocytes Absolute Auto 1.49 K/mm3 (1.10-4.50); Lymphocytes Percent Auto 16.7 % (18.0-42.0); Mean Corpuscular HGB Conc 32.8 g/dL (32-36); Mean Corpuscular Hemoglobin 32.9 pg (27.0-31.0); Mean Corpuscular Volume 100.3 fL (78.0-102.0); Mean Platelet Volume 9.9 fl (8.7-11.0); Monocytes Absolute Auto 0.91 K/mm3 (0.10-0.90); Monocytes Percent Auto 10.2 % (2.0-11.0); Neutrophils Absolute Auto 5.86 K/mm3 (1.70-7.20); Neutrophils Percent Auto 65.5 % (50.0-70.0); Nitrate Urine Positive (Negative); Platelet Count Result 278 K/mm3 (150-420); Protein Urine Negative (Negative); Red Blood Count 3.59 M/mm3 (4.70-6.10); Red Cell Distribution Width 15.1 % (11.6-14.4); Urobilinogen Urine 0.2 mg/dL (0.2-1.0); White Blood Count 8.9 K/mm3 (4.8-10.8)
[2024-02-04 07:48] LABS: Add Urine Microscopic? YES; Bacteria Urine 4+ /hpf; RBC Urine None seen /hpf (0-2); Squamous Epithelial Cell Urine Few /hpf (Few); WBC Urine 31-50 /hpf (0-3)
[2024-02-04 08:21] LABS: Alanine Aminotransferase 22 U/L (16-63); Albumin Level 3.5 g/dL (3.4-5.0); Alkaline Phosphatase 37 U/L (46-116); Anion Gap 9 mmol/L (4-12); Aspartate Amino Transferase 18 U/L (15-37); Bilirubin,Total 0.4 mg/dL (0.00-1.00); Blood Urea Nitrogen 28 mg/dL (7-18); Calcium 8.5 mg/dL (8.5-10.1); Carbon Dioxide 24 mmol/L (21-32); Chloride 107 mmol/L (98-108); Cholesterol 164 mg/dL (0-200); Creatine Kinase 80 U/L (39-308); Estimated Glomerular Filt Rate 43; Ferritin 58 ng/mL (26-388); Glucose 95 mg/dL (70-99); HDL Direct 58 mg/dL (40-60); Iron 39 ug/dL (65-175); LDL Cholesterol Calculated 91 mg/dL (<130); Osmolality Calculated 295 mOsm/kg (285-295); Potassium 4.6 mmol/L (3.5-5.1); Sodium 140 mmol/L (136-145); Total Protein 6.3 g/dL (6.4-8.2); Triglycerides 73 mg/dL (0-150); Uric Acid 5.4 mg/dL (3.5-7.2); Vitamin B12 1953 pg/mL (193-986)
== END 2024-02-04 07:06 | disposition home or self-care (01) ==
PROVIDERS: PCP Internal Medicine; Visit Provider Internal Medicine
DX: D50.9 Iron deficiency anemia, unspecified (principal); N18.31 Chronic kidney disease, stage 3a; E53.8 Deficiency of other specified B group vitamins; I10 Essential (primary) hypertension; E78.2 Mixed hyperlipidemia; E79.0 Hyperuricemia without signs of inflammatory arthritis and tophaceous disease
CPT/HCPCS: 36415; 80053; 80061; 81001; 82550; 82607; 82728; 83540; 84550; 85025

== ENCOUNTER 2024-04-11 08:12 | Outpatient (CLI) | payer MEDICARE, SELFPAY ==
--- NOTE | ~2024-04-11 | CT_ITS ---
EXAMINATION: CT diagnostic chest wo con DATE: 04/11/2024 08:31 INDICATION: Pulmonary nodule, COPD, current smoker TECHNIQUE: Computed tomography (CT) of the chest was performed without intravenous contrast. Addition al 3D reconstructions utilizing coronal maximum intensity projection (MIP) were performed. Automated exposure control and iterative reconstruction technique were employed. The dose-length product was 88 .27 mGy-cm. COMPARISON: Chest CT dated 04/06/2023 FINDINGS: Mild partially calcified biapical pleural-parenchymal scarring. Mild emphysema. New linear band of di scoid atelectasis/scarring in the lingula along side the major fissure. There are few scattered bilat eral calcified pulmonary nodules along with calcified right hilar nodes consistent with old granuloma tous disease. No other suspicious noncalcified pulmonary nodules, pneumonia, pulmonary edema or pleur al effusion. Arch size is normal. Atherosclerotic coronary artery calcification. Aortic valve calcifi cation. Atherosclerotic calcific changes along the aortic arch and at the great vessels arising from the arch which appears potentially minimally significant at the left subclavian artery. There are few large hepatic cysts the largest in segment 3 measuring 4.2 cm . 4-5 mm stone in upper pole calyx of the left kidney. Moderate thoracic spondylosis. IMPRESSION: 1. A few calcified pulmonary nodules and calcified right hilar lymph nodes consistent with old granul omatous disease. No other suspicious pulmonary nodules. 2. Mild emphysema with mild biapical pleural-parenchymal scarring. 2. Atherosclerotic calcifications, potentially minimally significant at the proximal left subclavian artery. Reviewed, dictated and finalized at location B. IMPRESSION: 1. A few calcified pulmonary nodules and calcified right hilar lymph nodes cons istent with old granulomatous disease. No other suspicious pulmonary nodules. 2. Mild emphysema with mild biapical pleural-parenchymal scarring. 2. Atherosclerotic calcifications, potentially minimally significant at the pro ximal left subclavian artery.
== END 2024-04-11 08:13 | disposition home or self-care (01) ==
LOC: CHSIMG 08:13
PROVIDERS: PCP Internal Medicine; Visit Provider Internal Medicine
DX: R91.1 Solitary pulmonary nodule (principal); J44.9 Chronic obstructive pulmonary disease, unspecified; R91.8 Other nonspecific abnormal finding of lung field
CPT/HCPCS: 71250

== ENCOUNTER 2024-05-03 01:07 | Day surgery (SDC) | payer MEDICARE, SELFPAY ==
[2024-04-20 14:55] VITALS: BMI 21.5
[2024-05-03 10:20] VITALS: BP 136/53; PULSE 56; RESP 20; TEMP 36.1; O2SAT 99
[2024-05-03] MEDS: LACTATED RINGERS 1,000 ML 150 ML IV CONT (10:32)
--- NOTE | 2024-05-03 11:06 | P.PNAN_ITS ---
Anes - Initial Pre Proc Eval Procedure: Operation Date: 05/03/24 11:30 Proposed Procedures p Colonoscopy - Saad Rice DO Date/Time: 05/03/24 11:06 Surgeon: Saad Rice DO Pre Op Diagnosis: Iron Deficiency Anemia Patient Data Age: 84 Gender: M Height: 1.83 m Weight: 72.8 kg Last Vital Signs Temp 96.9 F L 05/03/24 10:20 Pulse 56 L 05/03/24 10:20 Resp 20 05/03/24 10:20 BP 136/53 L 05/03/24 10:20 Pulse Ox 99 05/03/24 10:20 O2 Del Method Room Air 05/03/24 10:20 Allergies Allergy/AdvReac Type Severity Reaction Status Date / Time No Known Allergies Allergy Verified 05/03/24 10:18 Home Medications Medication Instructions Recorded Confirmed Type allopurinol 100 mg tablet 100 mg PO DAILY 04/20/24 05/03/24 History amlodipine 10 mg tablet 10 mg PO DAILY 04/20/24 04/20/24 History amlodipine 2.5 mg tablet 2.5 mg PO DAILY 04/20/24 04/20/24 History aspirin 81 mg capsule 81 mg PO DAILY 04/20/24 04/20/24 History lorazepam 1 mg tablet 0.5 - 1 mg PO HS 04/20/24 04/20/24 History metoprolol succinate 25 mg 25 mg PO DAILY 04/20/24 04/20/24 History tablet,extended release 24 hr metoprolol tartrate 50 mg tablet 50 mg PO BID 04/20/24 04/20/24 History pantoprazole 40 mg tablet,delayed 40 mg PO DAILY 04/20/24 04/20/24 History release simvastatin 40 mg tablet 40 mg PO DAILY 04/20/24 04/20/24 History Patient hx anesthesia problems: none Family hx anesthesia problems: none Results Review: All pre-operative results and documents have been reviewed as part of the pre-operative evaluation. [facility] Social History Social History Smoking packs per day: 1 Smoking cigarettes per day: 20.0 Years smoked: 70 Smoking pack-years: 70.00 Smoking status: Current every day smoker Tobacco type: cigarettes Alcohol intake: current Drinks per week: 10 Alcohol use details: Beer Living arrangements: with family Spiritual care concerns: No Anes - Eval Final PreProcedure Day of Procedure 05/03/24 11:06 Patient weight: normal Heart: regular rate and rhythm Lungs: clear to auscultation Airway: Mallampati scale class II Neurological: alert and oriented Last oral intake: >/= 8 hours ASA classification: III Emergent: no Anesthetic plan: proceed Anesthesia type and monitoring: general GIVS and standard monitoring Results Review: All pre-operative results and documents have been reviewed as part of the pre- operative evaluation. Informed Consent: The patient's anesthetic plan and its attendant risks and benefits were discussed with the patient/family/POA. Questions were solicited and answers provided to the satisfaction of the patient/family/POA.
--- NOTE | 2024-05-03 11:35 | PM.IMHP ---
H&P: HPI History of Present Illness Date/Time: 05/03/24 11:35 Chief Complaint: Iron deficiency anemia Narrative: this is an 84-year-old man who presents for colonoscopy. He has recently been found to be anemic. He does not notice any hematochezia or melena. He has had a colonoscopy before but it has been greater than 10 years. He denies any family history of colon cancer. Review of Systems Review of Systems: All systems reviewed & are unremarkable except as noted in HPI and below Constitutional: Constitutional: Denies chills, Denies fever(s), Denies headache(s) and Denies weight loss Eyes: Eyes: Denies change in vision ENT: Denies dizziness, Denies headache(s), Denies neck mass and Denies throat swelling Cardiovascular: Cardiovascular: Denies chest pain, Denies lightheadedness and Denies dyspnea Respiratory: Respiratory: Denies cough, Denies dyspnea and Denies wheezing Gastrointestinal: Gastrointestinal: Denies abdominal pain, Denies change in bowel habits, Denies nausea and Denies vomiting Genitourinary: Genitourinary: Denies hematuria and Denies dysuria Musculoskeletal: Musculoskeletal: Reports as per HPI Integumentary/Breasts: Skin/Breast: Reports as per HPI Neurologic: Denies dizziness and Denies headache(s) Allergic/Immunologic: Allergic/Immunologic: Denies throat swelling and Denies wheezing PMFSH Social History Social History Smoking packs per day: 1 Smoking cigarettes per day: 20.0 Years smoked: 70 Smoking pack-years: 70.00 Smoking status: Current every day smoker Tobacco type: cigarettes Alcohol intake: current Drinks per week: 10 Alcohol use details: Beer Living arrangements: with family Spiritual care concerns: No Meds Home Medications and Allergies Home Medications Medication Instructions Recorded Confirmed Type allopurinol 100 mg tablet 100 mg PO DAILY 04/20/24 05/03/24 History amlodipine 10 mg tablet 10 mg PO DAILY 04/20/24 04/20/24 History amlodipine 2.5 mg tablet 2.5 mg PO DAILY 04/20/24 04/20/24 History aspirin 81 mg capsule 81 mg PO DAILY 04/20/24 04/20/24 History lorazepam 1 mg tablet 0.5 - 1 mg PO HS 04/20/24 04/20/24 History metoprolol succinate 25 mg 25 mg PO DAILY 04/20/24 04/20/24 History tablet,extended release 24 hr metoprolol tartrate 50 mg tablet 50 mg PO BID 04/20/24 04/20/24 History pantoprazole 40 mg tablet,delayed 40 mg PO DAILY 04/20/24 04/20/24 History release simvastatin 40 mg tablet 40 mg PO DAILY 04/20/24 04/20/24 History Allergies Allergy/AdvReac Type Severity Reaction Status Date / Time No Known Allergies Allergy Verified 05/03/24 10:18 Vital Signs Vital Signs - 24 hr 05/03/24 10:20 Temperature 36.1 C L Pulse Rate 56 L Respiratory Rate 20 Blood Pressure 136/53 L Pulse Oximetry 99 Oxygen Delivery Room Air Exam Const: General: no acute distress and alert Orientation/consciousness: patient oriented x3 HENMT: Head: normocephalic and atraumatic Ears: hearing grossly normal bilaterally Face/Nose/Sinus: Normal nares present Mouth: Yes Normal oral and palatal mucosa present Eyes: Periorbital: periorbital findings normal Sclera: sclerae normal EOM: EOMs intact bilaterally Neck: Neck: normal visual inspection, no lymphadenopathy and trachea midline Chest: Chest palpation & inspection: normal inspection of the chest Resp: Effort & Inspection: normal respiratory effort Auscultation: clear to auscultation bilaterally Cardio: Jugular venous distension: no JVD Rate: regular rate Rhythm: regular rhythm Heart sounds: S1 normal heart sound present and S2 normal heart sound present Peripheral pulses: Peripheral pulses 2+ throughout GI: Inspection: normal to inspection GI Palp: Yes Soft to palpation, No Tenderness to palpation present (GI), No Guarding due to palpation present (GI) and No Rebound tenderness present Percussion: Yes normal to percussion Auscultation: normal bowel sounds : General:
[2024-05-03] MEDS: SIMETHICONE ORAL SUSPENSION 20 MG/0.3 ML 30 ML BOTTLE 0.6 ML IRRIGATION (12:03)
[2024-05-03 12:09] VITALS: BP 95/50; PULSE 53; RESP 19; O2SAT 100
[2024-05-03 12:19] VITALS: BP 105/62; PULSE 53; RESP 15; O2SAT 99
[2024-05-03 12:29] VITALS: BP 113/63; PULSE 53; RESP 19; O2SAT 100
== END 2024-05-03 12:45 | disposition home or self-care (01) ==
PROVIDERS: PCP Internal Medicine; Visit Provider Surgery
PROC: 0DJD8ZZ Inspection of Lower Intestinal Tract, Via Natural or Artificial Opening Endoscopic (ICD-10-PCS; CPT 45378; principal; 2024-05-03 11:30)
DX: D50.9 Iron deficiency anemia, unspecified (principal); K57.30 Diverticulosis of large intestine without perforation or abscess without bleeding; K64.8 Other hemorrhoids; F17.210 Nicotine dependence, cigarettes, uncomplicated
CPT/HCPCS: 45378; J2704; J7120

== ENCOUNTER 2024-09-08 06:56 | Outpatient (CLI) | payer MEDICARE, SELFPAY ==
[2024-09-08 07:11] LABS: Basophils Absolute Auto 0.07 K/mm3 (0.00-0.10); Basophils Percent Auto 0.8 % (0.0-1.0); Eosinophils Absolute Auto 0.53 K/mm3 (0.02-0.50); Eosinophils Percent Auto 6.1 % (1.0-6.0); Hematocrit 34.7 % (37.0-46.0); Hemoglobin 11.7 g/dL (12.4-15.3); Immature Granulocyte Absolute 0.07 K/mm3 (0.00-0.00); Immature Granulocyte Percent A 0.8 % (0.0-0.0); Lymphocytes Absolute Auto 1.58 K/mm3 (1.10-4.50); Lymphocytes Percent Auto 18.1 % (18.0-42.0); Mean Corpuscular HGB Conc 33.7 g/dL (32-36); Mean Corpuscular Hemoglobin 32.6 pg (27.0-31.0); Mean Corpuscular Volume 96.7 fL (78.0-102.0); Mean Platelet Volume 9.7 fl (8.7-11.0); Monocytes Absolute Auto 0.93 K/mm3 (0.10-0.90); Monocytes Percent Auto 10.7 % (2.0-11.0); Neutrophils Absolute Auto 5.53 K/mm3 (1.70-7.20); Neutrophils Percent Auto 63.5 % (50.0-70.0); Platelet Count Result 253 K/mm3 (150-420); Red Blood Count 3.59 M/mm3 (4.70-6.10); Red Cell Distribution Width 15.8 % (11.6-14.4); White Blood Count 8.7 K/mm3 (4.8-10.8)
[2024-09-08 07:24] LABS: Add Urine Microscopic? YES; Appearance Urine Clear (Clear); Bilirubin Urine Negative (Negative); Blood Urine Negative (Negative); Color Urine Light Yellow (Yellow); Glucose Urine UA Negative (Negative); Ketones Urine Negative (Negative); Leukocyte Esterase Ur 2+ LEU/UL (Negative); Nitrate Urine Positive (Negative); Protein Urine Negative (Negative); Urobilinogen Urine 0.2 mg/dL (0.2-1.0)
[2024-09-08 07:30] LABS: Bacteria Urine 3+ /hpf; RBC Urine None seen /hpf (0-2)
[2024-09-08 08:24] LABS: Alanine Aminotransferase 19 U/L (16-63); Albumin Level 3.4 g/dL (3.4-5.0); Alkaline Phosphatase 42 U/L (46-116); Anion Gap 9 mmol/L (4-12); Aspartate Amino Transferase 13 U/L (15-37); Bilirubin,Total 0.4 mg/dL (0.00-1.00); Blood Urea Nitrogen 28 mg/dL (7-18); Calcium 8.9 mg/dL (8.5-10.1); Carbon Dioxide 28 mmol/L (21-32); Chloride 105 mmol/L (98-108); Cholesterol 156 mg/dL (0-200); Creatine Kinase 53 U/L (39-308); Estimated Glomerular Filt Rate 44; Ferritin 33 ng/mL (26-388); Free T3 2.21 pg/mL (2.18-3.98); Free T4 Free Thyroxine 0.84 ng/dL (0.76-1.46); Glucose 98 mg/dL (70-99); HDL Direct 63 mg/dL (40-60); Iron 41 ug/dL (65-175); LDL Cholesterol Calculated 81 mg/dL (<130); Osmolality Calculated 299 mOsm/kg (285-295); Potassium 4.7 mmol/L (3.5-5.1); Sodium 142 mmol/L (136-145); Thyroid Stimulating Hormone 3.58 uIU/mL (0.36-3.74); Total Protein 6.2 g/dL (6.4-8.2); Triglycerides 60 mg/dL (0-150); Vitamin B12 1878 pg/mL (193-986)
== END 2024-09-08 06:57 | disposition home or self-care (01) ==
LOC: CHSLAB 06:59
PROVIDERS: PCP Internal Medicine; Visit Provider Internal Medicine
DX: N39.0 Urinary tract infection, site not specified (principal); E78.2 Mixed hyperlipidemia; I10 Essential (primary) hypertension; D50.9 Iron deficiency anemia, unspecified; E79.0 Hyperuricemia without signs of inflammatory arthritis and tophaceous disease; R53.83 Other fatigue; D51.9 Vitamin B12 deficiency anemia, unspecified
CPT/HCPCS: 36415; 80053; 80061; 81001; 82550; 82607; 82728; 83540; 84439; 84443; 84481; 85025; 87086; 87186

== ENCOUNTER 2024-11-23 11:51 | Outpatient (CLI) | payer MEDICARE, SELFPAY ==
--- NOTE | ~2024-11-23 | XR_ITS ---
EXAMINATION: XR chest 2V DATE: 11/23/2024 12:16 INDICATION: Shortness of breath TECHNIQUE: frontal and lateral views of the chest were obtained. COMPARISON: Chest radiograph dated 12/21/[address] dated 04/11/2024 FINDINGS: Calcified right middle lobe nodule and calcified right hilar lymph nodes consistent with old granulom atous disease. No other airspace opacities, pulmonary edema, pleural effusion or pneumothorax. The ca rdiomediastinal silhouette is normal. Visualized bones and soft tissues are unremarkable. IMPRESSION: 1. No acute cardiopulmonary disease. Reviewed, dictated and finalized at location B. LINE OPERATOR
--- OUTSIDE RECORDS SUMMARY | 2024-11-23 12:13 | XMS_ITS | Clinical Summary ---
Author Organization [facility] Address [address] [place] [phone] Phone Care Team Providers Care Desulfurizer Operator Name Role Phone Unavailable Primary Care Provider Unavailabl e Medications Medication Sig Dispensed Refills Start Date End Date Status ferrous gluconate (FERGON) 324 (38 Fe) MG tablet 1 bid 5 10/29/2013 Active metoprolol tartrate (LOPRESSOR) 50 MG tablet 1 bid 10/27/2013 Active simvastatin (ZOCOR) 40 MG tablet TAKE ONE TABLET BY MOUTH DAILY 12 01/23/2014 Active Multiple Vitamin (MULTIVITAMIN) capsule 1 dialy 5 09/15/2015 Ac tive Active Problems Problem Noted Date Diagnosed Date Hypertensive chronic kidney disease with stage 1 through stage 4 chronic kidney disease, or unspecified chronic kidney disease 06/12/2014 Chronic kidney disease, stage 3 (moderate) 10/29 Other hyperlipidemia 10/29/2013 Overview (12/30/2018): Converted unresolved ICD9, potential mismatch. Pain in joint 10/29/2013 Family History Medical History Relation Comments Coronary arteriosclerosis Neg Hx Diabetes mellitus Neg Hx Kidney disease Neg Hx Kidney stone Neg Hx Social History Tobacco Use Types Packs/Day Years Used Date Smoking Tobacco: Light Smoker Sex and Gender Information Value Date Recorded Sex Assigned at Not on file Gender Identity Not on file Sexual Orientation Not on file Last Filed Vital Signs Vital Sign Reading Time Taken Comments Blood Pressure 118/70 2017 12:01 AM CDT Pulse 72 2017 12:01 AM CDT Temperature 35.6 C (96.1 F) 2017 12:01 AM CDT Respiratory Rate - - Oxygen Saturation - - Inhaled Oxygen Concentration - - Weight 75.3 kg (166 lb) 2017 12:01 AM CDT Height 185.4 cm (6' 1 ) 2017 12:01 AM CDT Body Mass Index 21.9 2017 12:01 AM CDT Plan of Treatment Not on file
--- OUTSIDE RECORDS SUMMARY | 2024-11-23 12:13 | XMS_ITS | Clinical Summary ---
Author Organization [facility] Address [address] [place] [address] Care Team Providers Care Cotton Bag Sewer Name Role Phone Benjamín Mueller MD Primary Care Provider [phone] Gunner Giang MD Unavailable Allergies No known active allergies Medications metoprolol tartrate 50 MG tablet Take 50 mg by mouth 2 (two) times daily. Active pantoprazole 40 MG tablet Take 40 mg by mouth daily. Active simvastatin 40 MG tablet Take 40 mg by mouth nightly at bedtime. Active aspirin EC (ASPIRIN) 81 MG EC tablet Take 81 mg by mouth daily. Active allopurinol 100 MG tablet 08/03/2019 Active lorazepam 1 MG tablet 08/07/2019 Active Multiple Vitamin (MULTIVITAMIN) capsule 09/15/2015 Active amLODIPine (NORVASC) 2.5 MG tablet TAKE 1 TABLET BY MOUTH EVERY DAY 90 tablet 1 08/27/2024 Active Active Problems Problem Noted Date Diagnosed Date Essential hypertension 01/20/2021 PAD (peripheral artery disease) 02/28/2018 AAA (abdominal aortic aneurysm) without rupture 02/28/2018 Smoker 02/28/2018 Hyperlipidemia, unspecified hyperlipidemia type 02/28/2018 Chronic kidney disease, stag e 3 (moderate) (CMS/HCC HHS/HCC) Family History Relation Status Comments Brother Alive hypertension Father Maternal Grandfather Maternal Grandmother Mother Paternal Grandfather Paternal Grandmother Sister Alive Social History Tobacco Use Types Packs/Day Years Used Date Smoking Tobacco: Every Day Cigarettes 1 60 Smokeless Tobacco: Never Tobacco Cessation:Ready to Q uit: Not Asked; Counseling Given: Not Answered Alcohol Use Standard Drinks/Week Comments No 0 (1 standard drink = 0.6 oz pur e alcohol) Sex and Gender Information Value Date Recorded Sex Assigned at Not on file Legal Sex Male 9:03 AM CDT Gender Identity Not on file Sexual Orientation Not on file Occupation Industry Job Start Date Job End Date retired Not on file Not on file Not on file Last Filed Vital Signs Vital Sign Reading Time Taken Comments Blood Pressure 131/50 03/20/2024 9:45 AM CDT Pulse 50 03/20/2024 9:45 AM CDT Temperature - - Respiratory Rate 12 03/20/2024 9:45 AM CDT Oxygen Saturation - - Inhaled Oxygen Concentration - - Weight 75.8 kg (167 lb) 03/20/2024 9:45 AM CDT Height 182.9 cm (6') 03/20/2024 9:45 AM CDT Body Mass Index 22.65 03/20/2024 9:45 AM CDT Plan of Treatment Upcoming Encounters Date Type Department Care Team (Late st Contact Info) Description 03/22/2025 9:[address] [place] [place] [address] Gunner Giang MD [address] [place] [address] 03/22/2025 10:00 AM CDT Appointment [facility] [place] [address] Gunner Giang MD [address] [place] [address] 04/02/2025 11:00 AM CDT Office Visit [facility] [place] [address] Gunner Giang MD [address] [place] [address] Health Maintenance Due Date Last Done Comments ASCVD LDL 1940 ASCVD Statin 1940 DTaP, Tdap and Td Vaccines ( 1 - Tdap) 01/20/1960 Zoster Vaccines (1 of 2) 1991 Annual Medicare Wellness Visit 2006 RSV Immunization or 60+ Years (1 - 1-dose 75+ series) 01/20/2016 Pneumococcal Vaccine: 65+ Ye ars (2 of 2 - PPSV23 or PCV20) 08/23/2016 06/28/2016 COVID-19 Vaccine (1 - 2023-2 5 season) 2024 Influenza Adult (#1) 2024 Meningococcal B Vaccine Aged Out No l onger eligible based on patient's age to complete this topic Meningococcal Vaccine Aged Out No yuliana vivian eligible based on patient's age to complete this topic RSV Immunizations Under 20 Months Aged Out No longer eligible based on patient's age to complete this topic Insurance AETNA Care Teams Cotton Bag Sewer Relationship Specialty Start Date End Date Benjamín Mueller MD [address] [place] [phone] PCP - General INTERNAL MEDICINE 02/09/18 Gunner Giang MD [address] [place] [address] Vascular/Biological Technical Officer INTERNAL MEDICINE 03/08/22
[2024-11-23 12:17] LABS: Hematocrit 35.7 % (37.0-46.0); Hemoglobin 11.7 g/dL (12.4-15.3); Mean Corpuscular HGB Conc 32.8 g/dL (32-36); Mean Corpuscular Hemoglobin 31.5 pg (27.0-31.0); Mean Platelet Volume 9.8 fl (8.7-11.0); Platelet Count Result 294 K/mm3 (150-420); Red Blood Count 3.72 M/mm3 (4.70-6.10); Red Cell Distribution Width 15.4 % (11.6-14.4); White Blood Count 5.9 K/mm3 (4.8-10.8)
[2024-11-23 12:22] LABS: Add Urine Microscopic? YES; Appearance Urine Clear (Clear); Bilirubin Urine Negative (Negative); Blood Urine Negative (Negative); Color Urine Light Yellow (Yellow); Glucose Urine UA Negative (Negative); Ketones Urine Negative (Negative); Leukocyte Esterase Ur 1+ (Negative); Nitrate Urine Positive (Negative); Protein Urine Trace (Negative); Urobilinogen Urine 0.2 mg/dL (0.2-1.0); pH Urine 5.5 (5.0-8.0)
[2024-11-23 12:33] LABS: Bacteria Urine 3+ /hpf; RBC Urine None seen /hpf (0-2); Squamous Epithelial Cell Urine Few /hpf (Few); WBC Urine 21-30 /hpf (0-3)
[2024-11-23 12:42] LABS: Alanine Aminotransferase 16 U/L (16-63); Albumin Level 3.4 g/dL (3.4-5.0); Alkaline Phosphatase 37 U/L (46-116); Anion Gap 12 mmol/L (4-12); Aspartate Amino Transferase 13 U/L (15-37); Bilirubin,Total 0.5 mg/dL (0.00-1.00); Blood Urea Nitrogen 25 mg/dL (7-18); CRP 5.7 mg/dL (0.0-0.9); Calcium 8.7 mg/dL (8.5-10.1); Carbon Dioxide 24 mmol/L (21-32); Chloride 106 mmol/L (98-108); Estimated Glomerular Filt Rate 38; Glucose 105 mg/dL (70-99); NT Pro B Type Natriuretic Pept 607 pg/mL (0-450); Osmolality Calculated 298 mOsm/kg (285-295); Potassium 4.3 mmol/L (3.5-5.1); Prostate Specific Antigen 1.8 ng/mL (< OR = 4.0); Sodium 142 mmol/L (136-145); Total Protein 7.4 g/dL (6.4-8.2)
[2024-11-23 12:48] LABS: Lactic Acid Reflex 1.7 mmol/L (0.4-2.0)
[2024-11-23 13:01] LABS: D Dimer 1.39 mg/L (0.19-0.50)
[2024-11-23 13:25] LABS: Erythrocyte Sedimentation Rate 50 mm/hr (0-20)
== END 2024-11-23 11:52 | disposition home or self-care (01) ==
LOC: CHSLAB 11:53
PROVIDERS: PCP Internal Medicine; Visit Provider Internal Medicine
DX: R06.00 Dyspnea, unspecified (principal); R53.83 Other fatigue; N39.0 Urinary tract infection, site not specified; N41.9 Inflammatory disease of prostate, unspecified
CPT/HCPCS: 36415; 71046; 80053; 81001; 83605; 83880; 84153; 85027; 85380; 85652; 86140; 87040; 87086

== ENCOUNTER 2024-11-26 09:13 | Outpatient (CLI) | payer MEDICARE, SELFPAY ==
--- NOTE | ~2024-11-26 | XR_ITS ---
Clinical Indication: Shortness of breath PA chest radiographs: Comparison: 11/23/2024 Findings: Stable calcified right basilar granuloma. The lungs are otherwise clear, without evidence o f focal consolidation or pleural effusion. Cardiomediastinal silhouette is within normal limits. Bon es and soft tissues are unremarkable. Impression: No acute abnormality. Reviewed, dictated and finalized at location . OR STOCK PLAN ADMINISTRATOR Impression: No acute abnormality.
--- NOTE | ~2024-11-26 | NM_ITS ---
EXAMINATION: NM lung vent and perfusion DATE: 11/26/2024 10:26 INDICATION: Shortness of breath TECHNIQUE: 33.6 mCi Tc-99m DTPA by inhalation and 5.4 mCi Tc-99m MAA by intravenous route. Scintigra phic images of the chest were obtained. COMPARISON: Radiographs dated 11/23/2024 FINDINGS: There is homogeneous radiotracer activity throughout the lungs on the single breath ventilation seque nce. There is relatively homogeneous perfusion throughout the lungs. No discrete ventilation and pe rfusion mismatch is identified. IMPRESSION: 1. Low probability for pulmonary embolism. Reviewed, dictated and finalized at location A. N WARE CASTER
--- OUTSIDE RECORDS SUMMARY | 2024-11-26 09:40 | XMS_ITS | Clinical Summary ---
Author Organization [facility] Address [address] [place] [address] Care Team Providers Care Painter Set Name Role Phone Benjamín Mueller MD Primary Care Provider [phone] Gunner Giang MD Unavailable Allergies No known [...] mouth daily. Active allopurinol 100 MG tablet 9 Active lorazepam 1 MG tablet 9 Active Multiple Vitamin (MULTIVITAMIN) capsule 5 Active amLODIPine (NORVASC) 2.5 MG tablet TAKE 1 TABLET BY MOUTH EVERY DAY 90 tablet 1 5 Active amLODIPine (NORVASC) 2.5 MG tablet TAKE 1 TABLET BY MOUTH EVERY DAY 90 tablet 1 4 11/23/19 25 Discontinued Active Problems Problem Noted Date Diagnosed Date [...] AM CDT [facility]ointment [facility] [place] [address] Gunner Giang MD [address] [place] [address] 03/22/2025 10:[address] [facility] [place] [address] Gunner Giang MD [address] [place] [address] 04/02/2025 11:00 AM CDT Office Visit [facility] [address] [address] Gunner Giang MD [address] [place] [address] Health Maintenance Due Date Last Done Comments [...] complete this topic Insurance AETNA Care Teams Painter Set Relationship Specialty Start Date End Date Benjamín Mueller MD [address] [place] [phone] PCP - General INTERNAL MEDICINE 02/09/18 Gunner Giang MD [address] [place] [address] Vascular/Leg Assembler INTERNAL MEDICINE 03/08/22
--- OUTSIDE RECORDS SUMMARY | 2024-11-26 09:40 | XMS_ITS | Clinical Summary ---
Author Organization [facility] Address [address] [place] [phone] Phone Care Team Providers Care Egg Packer Name Role Phone Unavailable Primary Care Provider [...]
== END 2024-11-26 09:14 | disposition home or self-care (01) ==
LOC: CHSIMG 09:14
PROVIDERS: PCP Internal Medicine; Visit Provider Internal Medicine
DX: I50.9 Heart failure, unspecified (principal); R06.02 Shortness of breath; R79.1 Abnormal coagulation profile
CPT/HCPCS: 71046; 78582; A9540

== ENCOUNTER 2024-11-27 08:10 | Outpatient (CLI) | payer MEDICARE, SELFPAY ==
--- NOTE | ~2024-11-27 | US_ITS ---
EXAMINATION: US venous doppler [facility] DATE: 11/27/2024 09:13 INDICATION: Shortness of breath. Elevated d-dimer. TECHNIQUE: Grayscale ultrasound images without and with compression and Doppler ultrasound images of the bilateral lower extremity veins were obtained. COMPARISON: None. FINDINGS: The visualized portions of right common femoral vein, profunda (deep) femoral vein, femoral vein, pop liteal vein, posterior tibial veins, peroneal veins and greater saphenous vein outflow are patent. The visualized portions of left common femoral vein, profunda femoral vein, femoral vein, popliteal v ein, posterior tibial veins, peroneal veins and greater saphenous vein outflow are patent. IMPRESSION: 1. No deep venous thrombosis in either lower limb. Reviewed, dictated and finalized at location A. ING ENGINEER
--- NOTE | ~2024-11-27 | US_ITS ---
Ultrasound of the Abdominal Aorta INDICATION: Abdominal aortic aneurysm TECHNIQUE: Grayscale, color Doppler, and pulsed Doppler images of the aorta and common iliac arteries were obtained. COMPARISON: None. FINDINGS: Maximum vascular dimensions are as follows: Proximal aorta: 2.7 cm Mid aorta: 2.8 cm Distal aorta: 3.3 cm Right common iliac artery: 1.7 cm Left common iliac artery: 1.5 cm There is extensive atherosclerotic plaque throughout the abdominal aorta. IMPRESSION: Mild infrarenal abdominal aortic aneurysm measures 3.3 cm in maximum diameter. Extensive atherosclerotic disease of aorta. Reviewed, dictated and finalized at location . TER FOLDER
--- NOTE | ~2024-11-27 | US_ITS ---
Renal-Bladder ultrasound Clinical History: Chronic kidney disease Technique: Real-time sonographic imaging of the kidneys and urinary bladder was performed. Findings: The right kidney measures 9.2 cm in length and the left kidney measures 10.0 cm. There is n o hydronephrosis. Possible nonobstructing left renal stones measuring up to 9 mm. Renal cortical echo genicity is within normal limits. No suspicious renal mass lesion is identified. There is somewhat as ymmetric cortical thinning of the left kidney. Bilateral renal cysts are present. The urinary bladder is moderately distended at the time of this exam. No intraluminal echoes are iden tified. No abnormal wall thickening is seen. Impression: No hydronephrosis or suspicious renal mass. Possible nonobstructing left renal stones, as above. Relative asymmetric cortical thinning of the left kidney in particular. Reviewed, dictated and finalized at [facility]. BUILDER Impression: No hydronephrosis or suspicious renal mass. Possible nonobstructing left renal stones, as above. Relative asymmetric cortical thinning of the left kidney in particular.
--- OUTSIDE RECORDS SUMMARY | 2024-11-27 08:38 | XMS_ITS | Clinical Summary ---
Author Organization [facility] Address [address] [place] [phone] Phone Care Team Providers Care Tank Setter Name Role Phone Unavailable Primary Care Provider [...]
--- OUTSIDE RECORDS SUMMARY | 2024-11-27 08:38 | XMS_ITS | Clinical Summary ---
Author Organization [facility] Address [address] [place] [address] Care Team Providers Care Immunochemist Name Role Phone Benjamín Mueller MD Primary Care Provider [phone] Gunner Giang MD Unavailable Allergies No known [...] AM CDT Appointment [facility] [place] [address] Gunner Giang MD [address] [place] [address] 03/22/2025 10:[address] [facility] [place] [address] Gunner Giang MD [address] [place] [address] 04/02/2025 11:00 AM CDT Office Visit [facility] [address] [address] Gunner Giang MD [address] [place] [address] Health Maintenance Due Date Last Done Comments [...] complete this topic Insurance AETNA Care Teams Immunochemist Relationship Specialty Start Date End Date Benjamín Mueller MD [address] [place] [phone] PCP - General INTERNAL MEDICINE 02/09/18 Gunner Giang MD [address] [place] [address] Vascular/Communications Clerk INTERNAL MEDICINE 03/08/22
== END 2024-11-27 08:11 | disposition home or self-care (01) ==
LOC: CHSIMG 08:12
PROVIDERS: PCP Internal Medicine; Visit Provider Internal Medicine
DX: I50.9 Heart failure, unspecified (principal); N18.9 Chronic kidney disease, unspecified; N39.0 Urinary tract infection, site not specified; R79.1 Abnormal coagulation profile; I71.43 Infrarenal abdominal aortic aneurysm, without rupture; I70.0 Atherosclerosis of aorta
CPT/HCPCS: 76775; 93970

== ENCOUNTER 2024-12-11 13:17 | Outpatient (CLI) | payer MEDICARE, SELFPAY ==
--- NOTE | ~2024-12-11 | US_ITS ---
EXAM: BLADDER ULTRASOUND HISTORY: BPH W LUTS COMPARISON: None FINDINGS: BLADDER: Prevoid volume: 76.8 mL Post void volume: 0 IMPRESSION: No post void residual, as detailed above. Reviewed, dictated and finalized at location A. SURY AGENT
--- NOTE | 2024-12-11 13:27 | ECHO_ITS ---
Patient Info Name: iKrill Harris Age: 84 years : 1940 Gender: Male Ht: 68 in Wt: 170 lbs BSA: 1.94 m2 HR: 67 bpm BP: 127 / 70 mmHg Technical Quality: Good Exam Date: 12/11/2024 1:48 PM Exam Location: Echo Lab Patient Status: Outpatient Admit Date: 12/11/2024 Staff Ordering Physician: Benjamín Mueller MD Mechanical Drafter: Amy Cheek RDCS Attending Provider: Benjamín Mueller MD Referring Physician: Ervin ALLRED; Exam Type: CA echo doppler color flow Study Info Indications - CHF Complete two-dimensional, color flow and Doppler transthoracic echocardiogram is performed. Summary 1. Complete two-dimensional, color flow and Doppler transthoracic echocardiogram is performed. 2. Left ventricular chamber dimension is mildly enlarged. 3. Left ventricular systolic function is normal, estimated at 60-65%. 4. The left ventricular diastolic function is grade I diastolic dysfunction. 5. There is mild aortic valve sclerosis. 6. There is trace mitral valve regurgitation. 7. There is trace tricuspid valve regurgitation. 8. No pulmonary hypertension, estimated pulmonary arterial systolic pressure is 33 mmHg. Left Ventricle Tissue doppler was not performed. Left ventricular chamber dimension is mildly enlarged. Left ventricular systolic function is normal, estimated at 60-65%. The left ventricular diastolic function is grade I diastolic dysfunction. Right Ventricle Right ventricular systolic function is normal and with normal TAPSE 2.3 cm. Right ventricular chamber dimension is normal. Left Atria Left atrial chamber dimension is normal. Right Atria Right atrial chamber dimension is normal. Aortic Valve The aortic valve is trileaflet. There is mild aortic valve sclerosis. There is no aortic valve stenosis. There is no aortic valve regurgitation. Pulmonic Valve There is no pulmonic regurgitation. Mitral Valve There is no mitral valve stenosis. There is trace mitral valve regurgitation. Tricuspid Valve There is trace tricuspid valve regurgitation. No pulmonary hypertension, estimated pulmonary arterial systolic pressure is 33 mmHg. Pericardium/Pleural There is no pericardial effusion. Inferior Vena Cava Normal inferior vena cava with >50% collapse upon inspiration consistent with normal right atrial pressure, 5 mmHg. Aorta The aortic root size at the sinus of Valsalva is normal. Left Ventricular Outflow Tract Name Value Normal LVOT 2D LVOT Diameter 2.3 cm LVOT Doppler LVOT Peak Velocity 108 cm/s LVOT Peak Gradient 4 mmHg LVOT Mean Gradient 2 mmHg LVOT VTI 26 cm LVOT VTI/AV VTI Ratio 0.7 LVOT Stroke Volume 107 ml Pulmonic Valve Name Value Normal PV Doppler PV Peak Velocity 92 cm/s PV Peak Gradient 3 mmHg Mitral Valve Name Value Normal MV Doppler MV Peak Gradient 6 mmHg MV Mean Gradient 2 mmHg MV Area (Cont Eq VTI) 3.0 cm2 Tricuspid Valve Name Value Normal TV Regurgitation Doppler TR Peak Velocity 266 cm/s TR Peak Gradient 28 mmHg Estimated PAP/RSVP RA Pressure 5 mmHg <=5 PA Systolic Pressure 33 mmHg <36 RV Systolic Pressure 33 mmHg <36 Aortic Valve Name Value Normal AV Doppler AV Peak Velocity 155 cm/s AV Peak Gradient 10 mmHg AV Mean Gradient 5 mmHg AV VTI 35 cm AV Area (Cont Eq VTI) 3.1 cm2 >=3.0 AV Area (Cont Eq Aayush) 2.9 cm2 AV V1/V2 Ratio 0.70 AV Regurgitation 2D LVOT Area 4.1 cm2 Ventricles Name Value Normal LV Dimensions 2D/MM IVS Diastolic Thickness (2D) 0.8 cm 0.6-1.0 LVID Diastole (2D) 5.5 cm 4.2-5.8 LVIW Diastolic Thickness (2D) 0.9 cm 0.6-1.0 LVID Systole (2D) 3.7 cm 2.5-4.0 LVOT Diameter 2.3 cm LV Mass (2D Cubed) 162.97 g 88.00-224.00 LV Mass Index (2D Cubed) 84 g/m2 49-115 Relative Wall Thickness (2D) 0.32 LV Fractional Shortening/Ejection Fraction 2D/MM LV Fractional Shortening (2D) 32 % 25-43 LV EF (2D Teichmeir) 59 % 52-72 LV Diastolic Volume (4C MOD) 124 ml LV EF (4C MOD) 72 % LV Diastolic Length (4C) 8.0 cm LV Systolic Length (4C) 6.6 cm LV Stroke Volume (4C MOD) 90 ml Atria Name Value Normal RA Dimensions RA Area (4C) 16.3 cm2 <=18.0 Report Signatures
--- OUTSIDE RECORDS SUMMARY | 2024-12-11 15:12 | XMS_ITS | Clinical Summary ---
Author Organization [facility] Address [address] [place] [address] Care Team Providers Care Insurance Defense Paralegal Name Role Phone Benjamín Mueller MD Primary Care Provider [phone] Gunner Giang MD Unavailable Allergies No known [...] AM CDT [facility]ointment [facility] [place] [address] Gunner Giang MD [address] [place] [address] 03/22/2025 10:[address] [facility] [place] [address] Gunner Giang MD [address] [place] [address] 04/02/2025 11:00 AM CDT Office Visit [facility] [address] [place] [address] Gunner Giang MD [address] [place] [address] Health Maintenance Due Date Last Done Comments [...] complete this topic Insurance [employer] Care Teams Insurance Defense Paralegal Relationship Specialty Start Date End Date Benjamín Mueller MD [address] [place] [phone] PCP - General INTERNAL MEDICINE 02/09/18 Gunner Giang MD [address] [place] [address] Vascular/Interlacer INTERNAL MEDICINE 03/08/22
--- OUTSIDE RECORDS SUMMARY | 2024-12-11 15:12 | XMS_ITS | Clinical Summary ---
Author Organization [facility] Address [address] [place] [phone] Phone Care Team Providers Care Pipe Turner Name Role Phone Unavailable Primary Care Provider [...]
== END 2024-12-11 13:18 | disposition home or self-care (01) ==
LOC: CHSIMG 13:19
PROVIDERS: PCP Internal Medicine; Visit Provider Internal Medicine
DX: I50.9 Heart failure, unspecified (principal); N18.9 Chronic kidney disease, unspecified; N39.0 Urinary tract infection, site not specified; I35.8 Other nonrheumatic aortic valve disorders
CPT/HCPCS: 76857; 93306

== ENCOUNTER 2025-03-07 00:21 | Day surgery (SDC) | payer MEDICARE, SELFPAY ==
[2025-03-04 10:14] VITALS: BMI 20.3
--- OUTSIDE RECORDS SUMMARY | 2025-03-07 00:24 | XMS_ITS | Clinical Summary ---
Author Organization [facility] Address [address] [place] [phone] Phone Care Team Providers Care Solar Sales Associate Name Role Phone Unavailable Primary Care Provider Unavailabl e Medications ferrous gluconate (FERGON) 324 (38 Fe) MG tablet 1 bid 5 10/29/2013 Activ e metoprolol tartrate (LOPRESSOR) 50 MG tablet 1 bid 10/27/2013 Active simvastatin (ZOCOR) 40 MG tablet TAKE ONE TABLET BY MOUTH DAILY 12 01/23/2014 Active Multiple Vitamin (MULTIVITAMIN) capsule 1 dialy 5 09/15/2015 Active Active Problems Problem Noted Date Diagnosed [...] at Not on file Legal Sex Male 7:23 AM MST Gender Identity Not on file Sexual Orientation [...]
[2025-03-07 08:34] VITALS: BP 126/75; PULSE 67; RESP 18; TEMP 36.2; O2SAT 100; BMI 21.6
[2025-03-07] MEDS: LACTATED RINGERS 1,000 ML 150 ML IV CONT (08:42)
--- NOTE | 2025-03-07 08:45 | WPDANESEPPF ---
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 Patient Data Age: 85 Gender: M Height: 1.83 m Weight: 72.4 kg Last Vital Signs Temp 36.2 C L 03/07/25 08:34 Pulse 67 03/07/25 08:34 Resp 18 03/07/25 08:34 BP 126/75 03/07/25 08:34 Pulse Ox 100 03/07/25 08:34 O2 Del Method Room Air 03/07/25 08:34 Allergies Allergy/AdvReac Type Severity Reaction Status Date / Time No Known Allergies Allergy Verified 03/07/25 08:32 Home Medications ?Medication ?Instructions ?Recorded ?Confirmed ?Type allopurinol 100 mg tablet 100 mg PO DAILY 04/20/24 03/07/25 History amlodipine 10 mg tablet 10 mg PO DAILY 04/20/24 03/07/25 History aspirin 81 mg capsule 81 mg PO DAILY 04/20/24 03/07/25 History lorazepam 1 mg tablet 0.5 - 1 mg PO HS 04/20/24 03/07/25 History metoprolol succinate 25 mg 25 mg PO DAILY 04/20/24 03/07/25 History tablet,extended release 24 hr pantoprazole 40 mg tablet,delayed 40 mg PO DAILY 04/20/24 03/07/25 History release simvastatin 40 mg tablet 40 mg PO DAILY 04/20/24 03/07/25 History Patient hx anesthesia problems: none Family hx anesthesia problems: none Results Review: All pre-operative results and documents have been reviewed as part of the pre-operative evaluation. [facility] Past Medical History Medical History (Updated 03/07/25 @ 08:47 by Flaco Sharma DO) COPD (chronic obstructive pulmonary disease) Hypertension Hyperlipidemia Social History Social History Smoking packs per day: 1 Smoking cigarettes per day: 20.0 Years smoked: 60 Smoking pack-years: 60.00 Smoking status: Current every day smoker Tobacco type: cigarettes Alcohol intake: never Drinks per week: 10 Alcohol use details: Beer Substance use: never Substance use type: does not use Living arrangements: with family Spiritual care concerns: No Anes - Eval Final PreProcedure Day of Procedure 03/07/25 08:45 Patient weight: normal Heart: regular rate and rhythm Lungs: clear to auscultation and normal air movement Airway: Mallampati scale class II Neurological: alert and oriented Last oral intake: >/= 8 hours ASA classification: III Emergent: no Anesthetic plan: proceed Anesthesia type and monitoring: general GIVS and standard monitoring Results Review: All pre-operative results and documents have been reviewed as part of the pre-operative evaluation. Informed Consent: The patient's anesthetic plan and its attendant risks and benefits were discussed with the patient/family/POA. Questions were solicited and answers provided to the satisfaction of the patient/family/POA.
--- NOTE | 2025-03-07 09:18 | PM.IMHP ---
H&P: HPI History of Present Illness Date/Time: 03/07/25 09:18 Chief Complaint: Chronic GERD, history of Savage's esophagitis Narrative: This is an 85-year-old man who presents for EGD. He has a history of GERD and Savage's esophagitis. He has been diagnosed with iron deficiency anemia. His colonoscopy 1 year ago was normal. He denies any significant dysphagia and only occasionally complains of heartburn. He is on medication for acid reflux and this is well controlled for the most part. He denies hematemesis. Review of Systems Review of Systems: All systems reviewed & are unremarkable except as noted in HPI and below Constitutional: Constitutional: Denies chills, Denies fever(s), Denies headache(s) and Denies weight loss Eyes: Eyes: Denies change in vision ENT: Denies dizziness, Denies headache(s), Denies neck mass and Denies throat swelling Cardiovascular: Cardiovascular: Denies chest pain, Denies lightheadedness and Denies dyspnea Respiratory: Respiratory: Denies cough, Denies dyspnea and Denies wheezing Gastrointestinal: Gastrointestinal: Denies abdominal pain, Denies change in bowel habits, Denies nausea and Denies vomiting Genitourinary: Genitourinary: Denies hematuria and Denies dysuria Musculoskeletal: Musculoskeletal: Reports as per HPI Integumentary/Breasts: Skin/Breast: Reports as per HPI Neurologic: Denies dizziness and Denies headache(s) Allergic/Immunologic: Allergic/Immunologic: Denies throat swelling and Denies wheezing [facility] Past Medical History Medical History (Updated 03/07/25 @ 09:19 by Saad Rice DO) COPD (chronic obstructive pulmonary disease) Hypertension Hyperlipidemia Social History Social History Smoking packs per day: 1 Smoking cigarettes per day: 20.0 Years smoked: 60 Smoking pack-years: 60.00 Smoking status: Current every day smoker Tobacco type: cigarettes Alcohol intake: never Drinks per week: 10 Alcohol use details: Beer Substance use: never Substance use type: does not use Living arrangements: with family Spiritual care concerns: No Meds Home Medications and Allergies Home Medications ?Medication ?Instructions ?Recorded ?Confirmed ?Type allopurinol 100 mg tablet 100 mg PO DAILY 04/20/24 03/07/25 History amlodipine 10 mg tablet 10 mg PO DAILY 04/20/24 03/07/25 History aspirin 81 mg capsule 81 mg PO DAILY 04/20/24 03/07/25 History lorazepam 1 mg tablet 0.5 - 1 mg PO HS 04/20/24 03/07/25 History metoprolol succinate 25 mg 25 mg PO DAILY 04/20/24 03/07/25 History tablet,extended release 24 hr pantoprazole 40 mg tablet,delayed 40 mg PO DAILY 04/20/24 03/07/25 History release simvastatin 40 mg tablet 40 mg PO DAILY 04/20/24 03/07/25 History Allergies Allergy/AdvReac Type Severity Reaction Status Date / Time No Known Allergies Allergy Verified 03/07/25 08:32 Vital Signs Vital Signs - 24 hr 03/07/25 08:34 Temperature 97.2 F L Pulse Rate 67 Respiratory Rate 18 Blood Pressure 126/75 Pulse Oximetry 100 Oxygen Delivery Room Air Exam Const: General: no acute distress and alert Orientation/consciousness: patient oriented x3 HENMT: Head: normocephalic and atraumatic Ears: hearing grossly normal bilaterally Face/Nose/Sinus: Normal nares present Mouth: Yes Normal oral and palatal mucosa present Eyes: Periorbital: periorbital findings normal Sclera: sclerae normal EOM: EOMs intact bilaterally Neck: Neck: normal visual inspection, no lymphadenopathy and trachea midline Chest: Chest palpation & inspection: normal inspection of the chest Resp: Effort & Inspection: normal respiratory effort Auscultation: clear to auscultation bilaterally Cardio: Jugular venous distension: no JVD Rate: regular rate Rhythm: regular rhythm Heart sounds: S1 normal heart sound present and S2 normal heart sound present Peripheral pulses: Peripheral pulses 2+ throughout GI: Inspection: normal to inspection GI Palp: Yes Soft to palpation, No Tenderness to palpation present (GI), No Guarding due to palpation present (GI) and No Rebound tenderness present Percussion: Yes normal to percussion Auscultation: normal bowel sounds : General: Yes no CVA tenderness Back/Spine/Pelvis: Back: no CVA tenderness Neuro: General: patient oriented x3, no focal motor deficits and CN's II-XI intact bilaterally Cognition (Neuro): normal cognition Speech: normal speech Motor exam (neuro): 5/5 motor strength present throughout Extrem: General: capillary refill normal and no clubbing, cyanosis or edema Assessment and Plan Assessment and plan (1) GERD (gastroesophageal reflux disease): Code(s): K21.9 - Gastro-esophageal reflux disease without esophagitis Status: Acute Assessment and Plan: I have recommended EGD. I have discussed the procedure, risks, benefits, and alternatives. Questions were answered. Patient is agreeable to proceed. (2) History of Savage's esophagus: Code(s): Z87.19 - Personal history of other diseases of the digestive system Status: Acute
[2025-03-07] MEDS: BENZOCAINE (*SP) 60 ML SPRAY CAN (HURRICAINE) 1 SPRAY MUCOUS MEM (09:29)
[2025-03-07 09:54] VITALS: BP 92/53; PULSE 51; RESP 21; O2SAT 98
[2025-03-07 10:04] VITALS: BP 106/61; PULSE 51; RESP 20; O2SAT 98
[2025-03-07 10:14] VITALS: BP 116/72; PULSE 53; RESP 20; O2SAT 98
== END 2025-03-07 10:39 | disposition home or self-care (01) ==
PROVIDERS: PCP Internal Medicine; Visit Provider Surgery
PROC: 0DJ08ZZ Inspection of Upper Intestinal Tract, Via Natural or Artificial Opening Endoscopic (ICD-10-PCS; CPT 43255; principal; 2025-03-07 09:30)
DX: K25.0 Acute gastric ulcer with hemorrhage (principal); D18.03 Hemangioma of intra-abdominal structures; K21.9 Gastro-esophageal reflux disease without esophagitis; D50.9 Iron deficiency anemia, unspecified; F17.210 Nicotine dependence, cigarettes, uncomplicated; Z87.19 Personal history of other diseases of the digestive system
CPT/HCPCS: 43255; 88305; 88342; J2003; J2704; J7120

== ENCOUNTER 2025-03-14 09:49 | Outpatient (CLI) | payer MEDICARE, SELFPAY ==
--- OUTSIDE RECORDS SUMMARY | 2025-03-14 09:55 | XMS_ITS | Clinical Summary ---
Author Organization [facility] Myra utiharshal Address [address] [place] [id number] Phone Care Team Providers Care Wet Machine Tender Name Role Phone Unavailable Primary Care Provider [...] 12:01 AM CDT Height 185.4 cm (6' 1) 2017 12:01 AM CDT Body Mass Index 21.9 2017 12:01 AM CDT Plan of Treatment Not on file
[2025-03-14 10:07] VITALS: BP 153/80; PULSE 62; RESP 16; TEMP 36.5; O2SAT 97; BMI 21.8
[2025-03-14] MEDS: IRON SUCROSE COMPLEX 300 MG in SODIUM CHLORIDE 0.9% IV 250 ML 125 MG IVPB (10:15)
[2025-03-14 12:20] VITALS: BP 129/77; PULSE 68; RESP 14; O2SAT 97
--- NOTE | 2025-03-14 12:56 | PC.NURSE ---
1230 Patient tolerated Venofer infusion well. SEE MAR/patient care notes.
== END 2025-03-14 09:50 | disposition home or self-care (01) ==
PROVIDERS: PCP Internal Medicine; Visit Provider Internal Medicine
DX: D50.9 Iron deficiency anemia, unspecified (principal); Z88.8 Allergy status to other drugs, medicaments and biological substances; N18.31 Chronic kidney disease, stage 3a
CPT/HCPCS: 96365; 96366; J1756; J7050

== ENCOUNTER 2025-03-28 09:36 | Outpatient (CLI) | payer MEDICARE, SELFPAY ==
[2025-03-28 09:52] VITALS: BP 127/60; PULSE 68; RESP 14; TEMP 36.6; O2SAT 98; BMI 21.8
[2025-03-28] MEDS: IRON SUCROSE COMPLEX 300 MG in SODIUM CHLORIDE 0.9% IV 250 ML 125 MG IVPB (10:10)
--- OUTSIDE RECORDS SUMMARY | 2025-03-28 10:22 | XMS_ITS | Clinical Summary ---
Author Organization [facility] My[facility] utiharshal Address [address] [place] [id number] Phone Care Team Providers Care Teleradiologist Name Role Phone Unavailable Primary Care Provider [...]
[2025-03-28 12:25] VITALS: BP 129/70; PULSE 78; RESP 14
--- NOTE | 2025-03-28 12:34 | PC.NURSE ---
Patient tolerated #2 of 2 Venofer infusions well. See MAR/Patient care notes.
== END 2025-03-28 09:37 | disposition home or self-care (01) ==
PROVIDERS: PCP Internal Medicine; Visit Provider Internal Medicine
DX: D50.9 Iron deficiency anemia, unspecified (principal); N18.31 Chronic kidney disease, stage 3a; D63.1 Anemia in chronic kidney disease; Z88.8 Allergy status to other drugs, medicaments and biological substances
CPT/HCPCS: 96365; 96366; J1756; J7050

== ENCOUNTER 2025-09-09 13:15 | Outpatient (CLI) | payer MEDICARE, SELFPAY ==
--- NOTE | ~2025-09-09 | US_ITS ---
EXAMINATION: US retroperitoneal comp, 09/09/2025 13:22 HEART COORDINATOR HISTORY: UTI SYMPTOMS Comparison: None Technique: Tiwari-scale and color Doppler images were obtained. Findings: KIDNEYS: The renal cortices are thinned and echogenic, there are no solid masses , no hydronephrosis. Right Kidney: Right kidney 10.3 x 4 x 5.3 cm, mid pole simple cyst 1.7 x 2 x 2.1 cm. Left Kidney: Left kidney 10.5 x 2.2 x 4.1 cm, there are multiple simple appearing cysts the largest measuring 2.1 x 2.7 cm. Left kidney lower pole probable calculus measures 9 x 8 mm Incidental aortic aneurysm is noted measuring 3.6 x 3.2 cm. Bladder: The bladder is unremarkable. . Impression: 1. Medical renal disease. No obstruction. 2. Bilateral simple appearing renal cysts with left renal calculus. CT suggested to assess Reviewed, dictated and finalized at location P. T COORDINATOR Impression: 1. Medical renal disease. No obstruction. 2. Bilateral simple appearing renal cysts with left renal calculus. CT suggeste d to assess
== END 2025-09-09 13:16 | disposition home or self-care (01) ==
LOC: CHSIMG 13:19
PROVIDERS: PCP Internal Medicine; Visit Provider Physician Assistant
DX: R39.9 Unspecified symptoms and signs involving the genitourinary system (principal); N28.9 Disorder of kidney and ureter, unspecified; N20.0 Calculus of kidney
CPT/HCPCS: 76770